=== PATIENT | female | born 1945 | race Caucasian/White ===

== ENCOUNTER 2016-09-02 14:35 | Emergency (ER) | payer OTHER, MEDICAID ==
[~2016-09-02] VITALS: Ht 177.8 cm; Wt 86.6 kg
[~2016-09-02 14:35] MED LIST: APAP/HYDROCODON1 T13 PO; ASPIR-LOW81 M1 PO; ASPIRIN325 MG PO; ATORVASTATIN CA40 M1 PO; BG MC; CARCD240 PO; CARVEDILOL3.125 M1 PO; CLEOCIN HCL300 MG PO; CLOPIDOGREL75 M1 PO; COL100 PO; COLACE100 MG PO; DEXPF IV; DUL10S RC; ECO81 PO; ERYTHROMYCIN B250 MG PO; FLA500 PO; FLAGYL500 MG PO; FLEXERIL10 MG PO; GABAPENTIN300 M3 PO; GLU500 PO; GLUCOMETER; GOOD SENSE ASP325 MG PO; HEP5I SC; HUMULIN R100 U/1 M1 SC; HYDROCODONE/ACE1 T12 PO; IPRATROPIUM BROM3 M2 HHN; LAC PO; LANCETS SQ; LIPITOR40 MG PO; LISINOPRIL10 MG PO; MECLIZINE HYDRO25 M1 PO; METFORMIN HCL1000 MG PO; METFORMIN HCL500 MG PO; METOPROLOL TART25 M1 PO; METP PO; MOR2I IV; MOTRIN800 MG PO; MYL80 CH; NEU300 PO; NIC14 TD; NICOTINE T14 MG/24 H TOP; NIT0.4 SL; NITROSTAT0.4 MG SL; NOR10T PO; NORCO1 TA2 PO; PRI20 PO; PROAIR HFA0.09 MG/Ac IH; PROVENTIL0.09 MG/A1 INH; PULMICORT0.5 MG/2 M IH; QVAR0.08 MG/Ac IH; REG5 PO; RESTASIS0.051 OU; ROB750 PO; TOR30I IV; TYL325 PO; ULT50 PO; ZES5 PO; ZESTRIL10 MG PO; ZIT250 PO; ZITHROMAX500 MG PO; ZOC10 PO; ZOC20 PO; ZOFI IV; ZOFRAN8 MG PO; [UNRECOGNIZED DRUG - CODE] IV; [UNRECOGNIZED DRUG - OTHER]
[2016-09-02 18:27] VITALS: BP 110/66
== END 2016-09-02 18:27 | disposition home or self-care (01) ==
LOC: ED 14:35
DX: S80.212A Abrasion, left knee, initial encounter (principal); M25.561 Pain in right knee; I25.10 Atherosclerotic heart disease of native coronary artery without angina pectoris; E11.9 Type 2 diabetes mellitus without complications; I10 Essential (primary) hypertension; E78.00 Pure hypercholesterolemia, unspecified; W22.8XXA Striking against or struck by other objects, initial encounter; Y93.01 Activity, walking, marching and hiking; Y99.8 Other external cause status; Y92.89 Other specified places as the place of occurrence of the external cause
CPT/HCPCS: 90715

== ENCOUNTER 2017-01-26 18:47 | Inpatient (IN) | payer OTHER, MEDICAID ==
[~2017-01-26] VITALS: Ht 177.8 cm; Wt 84.1 kg
[2017-01-26 20:18] LABS: BASOPHIL % 0.4 % (0-2); PLATELET COUNT 215 x10^3mcL (130-400); RED CELL DISTRIBUTION WIDTH 14.1 % (11.5-14.5)
[2017-01-26 20:27] LABS: CALCIUM 8.8 mg/dL (8.5-10.1); CARBON DIOXIDE 27.1 mmol/L (21-32); CHLORIDE SERUM 104 mmol/L (98-107); CREATININE SERUM 0.9 mg/dL (0.6-1.0); GLUCOSE SERUM 107 mg/dL (74-106); POTASSIUM SERUM 3.6 mmol/L (3.5-5.1); SODIUM SERUM 137 mmol/L (136-145)
[2017-01-26 20:33] LABS: ALBUMIN 3.6 g/dL (3.4-5.0); ALKALINE PHOSPHATASE 82 U/L (46-116); ALT/SGPT 18 U/L (14-59); AST/SGOT 12 U/L (15-37); BILIRUBIN TOTAL 0.4 mg/dL (0.20-1.00); CHOLESTEROL 135 mg/dL (<200); HDL CHOLESTEROL 42 mg/dL (40-60); TOTAL PROTEIN, SERUM 7.2 g/dL (6.4-8.2)
[2017-01-26 21:35] LABS: UA SPECIFIC GRAVITY 1.015 (1.005-1.035); microscopic required? YES; urine erythrocyte 1+ (NEGATIVE)
[2017-01-26] MEDS ORDERED: PROAIR HFA8.5 GM IH (21:44)
[2017-01-26 22:31] LABS: CHOLESTEROL/HDL RATIO 3.3; MAGNESIUM 2.2 mg/dL (1.8-2.4); PHOSPHOROUS 4.3 mg/dL (2.5-4.9)
[2017-01-26 22:40] LABS: FREE T4 1.02 ng/dL (0.76-1.46); FREE THYROXINE INDEX 3.1 ug/dL (1.4-4.5); T4(THYROXINE) 9.4 ug/dL (4.7-13.3)
[2017-01-26 22:52] VITALS: BP 115/67
[2017-01-26 22:55] LABS: T3 TOTAL 1.11 ng/mL
[2017-01-26 23:05] VITALS: BP 115/67
[2017-01-27 02:59] VITALS: BP 115/67
[2017-01-27] MEDS ORDERED: DERMAFUNGAL TOP (03:34)
[2017-01-27 04:48] LABS: BASOPHIL % 0.2 % (0-2); PLATELET COUNT 186 x10^3mcL (130-400); RED CELL DISTRIBUTION WIDTH 13.8 % (11.5-14.5)
[2017-01-27 05:40] VITALS: BP 123/67
[2017-01-27 09:41] VITALS: BP 142/63
[2017-01-27 13:43] VITALS: BP 124/63
[2017-01-27 18:27] VITALS: BP 135/81
[2017-01-27 21:52] VITALS: BP 119/59
[2017-01-28 05:20] VITALS: BP 117/67
[2017-01-28 07:44] LABS: BASOPHIL % 0.4 % (0-2); PLATELET COUNT 150 x10^3mcL (130-400)
[2017-01-28 08:16] LABS: CALCIUM 8.6 mg/dL (8.5-10.1); CARBON DIOXIDE 25.6 mmol/L (21-32); CHLORIDE SERUM 110 mmol/L (98-107); CREATININE SERUM 0.8 mg/dL (0.6-1.0); GLUCOSE SERUM 113 mg/dL (74-106); POTASSIUM SERUM 3.8 mmol/L (3.5-5.1); SODIUM SERUM 143 mmol/L (136-145)
[2017-01-28 10:00] VITALS: BP 163/61
[2017-01-28 14:16] VITALS: BP 127/60
[2017-01-28 18:13] VITALS: BP 126/60
[2017-01-28 21:41] VITALS: BP 123/62
[2017-01-29 04:59] VITALS: BP 144/73
[2017-01-29 09:50] VITALS: BP 162/92
[2017-01-29] MEDS ORDERED: BACTRIM DS1 TAB PO (11:25)
[2017-01-29] MEDS ORDERED: MILLIPRED DP5 M2 PO (11:54)
[2017-01-29 13:06] VITALS: BP 162/92
== END 2017-01-29 14:06 | disposition home or self-care (01) | DRG 191 ==
LOC: ED 18:47 → DU 21:46
PROVIDERS: Emergency Medicine; Family Medicine; ADMIT Family Medicine
DX: J44.1 Chronic obstructive pulmonary disease with (acute) exacerbation (principal); J45.901 Unspecified asthma with (acute) exacerbation; N39.0 Urinary tract infection, site not specified; E87.2 Acidosis; E11.9 Type 2 diabetes mellitus without complications; E78.5 Hyperlipidemia, unspecified; F17.210 Nicotine dependence, cigarettes, uncomplicated; Z95.5 Presence of coronary angioplasty implant and graft; Z79.84 Long term (current) use of oral hypoglycemic drugs
CPT/HCPCS: 82962; 83880; 84439; 94150; J2270; J2930; J3490; J7030; J7512; J7620; Q0092

== ENCOUNTER 2017-03-20 01:26 | Emergency (ER) | payer OTHER, MEDICAID ==
[~2017-03-20 01:26] MED LIST changes: +BACTRIM DS1 TAB PO; +DERMAFUNGAL TOP; +MILLIPRED DP5 M2 PO; +PROAIR HFA8.5 GM IH
[2017-03-20 04:36] VITALS: BP 143/76
== END 2017-03-20 04:36 | disposition home or self-care (01) ==
LOC: ED 01:26
DX: R06.2 Wheezing (principal); T37.8X5A Adverse effect of other specified systemic anti-infectives and antiparasitics, initial encounter; J45.909 Unspecified asthma, uncomplicated; I10 Essential (primary) hypertension; E11.9 Type 2 diabetes mellitus without complications; Z88.1 Allergy status to other antibiotic agents; Z88.0 Allergy status to penicillin; Z88.8 Allergy status to other drugs, medicaments and biological substances; Z79.84 Long term (current) use of oral hypoglycemic drugs; Z79.51 Long term (current) use of inhaled steroids; Y92.89 Other specified places as the place of occurrence of the external cause
CPT/HCPCS: J1200; J3490; J7512; J7613

== ENCOUNTER 2017-05-02 13:07 | Inpatient (IN) | payer OTHER, MEDICAID ==
[~2017-05-02] VITALS: Ht 177.8 cm; Wt 76.7 kg
[2017-05-02 14:12] LABS: BASOPHIL % 0.5 % (0-2); PLATELET COUNT 220 x10^3mcL (130-400); RED CELL DISTRIBUTION WIDTH 14.5 % (11.5-14.5)
[2017-05-02 14:18] LABS: CALCIUM 9.7 mg/dL (8.5-10.1); CARBON DIOXIDE 33.5 mmol/L (21-32); CHLORIDE SERUM 101 mmol/L (98-107); CREATININE SERUM 0.8 mg/dL (0.6-1.0); GLUCOSE SERUM 104 mg/dL (74-106); POTASSIUM SERUM 4.4 mmol/L (3.5-5.1); SODIUM SERUM 139 mmol/L (136-145)
[2017-05-02 14:23] LABS: ALBUMIN 3.8 g/dL (3.4-5.0); ALKALINE PHOSPHATASE 88 U/L (46-116); ALT/SGPT 20 U/L (14-59); AST/SGOT 14 U/L (15-37); BILIRUBIN TOTAL 0.6 mg/dL (0.20-1.00); TOTAL PROTEIN, SERUM 7.7 g/dL (6.4-8.2)
[2017-05-02] MEDS ORDERED: CARVEDILOL3.125 M1 PO (14:24)
[2017-05-02] MEDS ORDERED: ATORVASTATIN CA40 M1 PO (14:24)
[2017-05-02] MEDS ORDERED: LISINOPRIL10 MG PO (14:25)
[2017-05-02] MEDS ORDERED: METFORMIN HYDR500 M1 PO (14:25)
[2017-05-02] MEDS ORDERED: CLOPIDOGREL75 M1 PO (14:25)
[2017-05-02 15:12] LABS: UA SPECIFIC GRAVITY <=1.005 (1.005-1.035); microscopic required? YES; urine erythrocyte 1+ (NEGATIVE)
[2017-05-02 15:42] LABS: PHOSPHOROUS 4.1 mg/dL (2.5-4.9)
[2017-05-02 15:51] VITALS: BP 121/74
[2017-05-02 15:52] LABS: FREE T4 1.15 ng/dL (0.76-1.46); FREE THYROXINE INDEX 3.2 ug/dL (1.4-4.5); T4(THYROXINE) 9.8 ug/dL (4.7-13.3)
[2017-05-02 15:53] LABS: CHOLESTEROL/HDL RATIO 2.5
[2017-05-02 16:22] LABS: T3 TOTAL 1.41 ng/mL
[2017-05-02 16:45] VITALS: BP 121/74
[2017-05-02 20:25] VITALS: BP 124/85
[2017-05-02 20:33] LABS: AMPHETAMINE QUAL UR NONE DETECTED (NEG <=1000)
[2017-05-03 05:06] VITALS: BP 113/63
[2017-05-03 07:33] LABS: CALCIUM 9.1 mg/dL (8.5-10.1); CARBON DIOXIDE 23.1 mmol/L (21-32); CHLORIDE SERUM 103 mmol/L (98-107); CREATININE SERUM 0.9 mg/dL (0.6-1.0); GLUCOSE SERUM 231 mg/dL (74-106); POTASSIUM SERUM 4.1 mmol/L (3.5-5.1); SODIUM SERUM 138 mmol/L (136-145)
[2017-05-03 07:43] LABS: BASOPHIL % 0.1 % (0-2); PLATELET COUNT 160 x10^3mcL (130-400); RED CELL DISTRIBUTION WIDTH 13.9 % (11.5-14.5)
[2017-05-03 09:13] VITALS: BP 124/58
[2017-05-03 12:05] VITALS: Ht 177.8 cm; Wt 76.7 kg
[2017-05-03 12:58] VITALS: BP 102/44
[2017-05-03 18:15] VITALS: BP 118/58
[2017-05-03 20:51] VITALS: BP 139/59
[2017-05-04 04:57] VITALS: BP 110/61
[2017-05-04 05:04] VITALS: BP 131/77
[2017-05-04 07:14] LABS: PLATELET COUNT 163 x10^3mcL (130-400); RED CELL DISTRIBUTION WIDTH 13.9 % (11.5-14.5)
[2017-05-04 07:25] LABS: CALCIUM 8.9 mg/dL (8.5-10.1); CARBON DIOXIDE 25.9 mmol/L (21-32); CHLORIDE SERUM 107 mmol/L (98-107); CREATININE SERUM 0.7 mg/dL (0.6-1.0); GLUCOSE SERUM 174 mg/dL (74-106); POTASSIUM SERUM 3.9 mmol/L (3.5-5.1); SODIUM SERUM 141 mmol/L (136-145)
[2017-05-04 07:45] LABS: BASOPHIL % 0 % (0-2)
[2017-05-04 11:26] VITALS: BP 112/52
[2017-05-04 17:21] VITALS: BP 120/55
[2017-05-04 20:33] VITALS: BP 130/64
[2017-05-05 05:52] VITALS: BP 128/61
[2017-05-05 06:03] LABS: PLATELET COUNT 162 x10^3mcL (130-400); RED CELL DISTRIBUTION WIDTH 13.9 % (11.5-14.5)
[2017-05-05 06:10] LABS: CALCIUM 8.9 mg/dL (8.5-10.1); CARBON DIOXIDE 28.7 mmol/L (21-32); CHLORIDE SERUM 106 mmol/L (98-107); CREATININE SERUM 0.8 mg/dL (0.6-1.0); GLUCOSE SERUM 179 mg/dL (74-106); POTASSIUM SERUM 3.9 mmol/L (3.5-5.1); SODIUM SERUM 141 mmol/L (136-145)
[2017-05-05 06:15] LABS: BASOPHIL % 0 % (0-2)
[2017-05-05 09:16] VITALS: BP 146/72
[2017-05-05] MEDS ORDERED: SYMBICORT1 AE3 INH (10:07)
[2017-05-05] MEDS ORDERED: MEDDP PO (10:08)
[2017-05-05] MEDS ORDERED: ZIT250 PO (10:15)
[2017-05-05] MEDS ORDERED: LAC PO (10:16)
[2017-05-05 11:11] VITALS: BP 146/72
== END 2017-05-05 12:00 | disposition home or self-care (01) | DRG 190 ==
LOC: ED 13:07 → DU 15:03 → MU 15:03 → DU 15:32 → MU 05-04 08:32
PROVIDERS: Emergency Medicine; ADMIT Family Medicine
DX: J44.1 Chronic obstructive pulmonary disease with (acute) exacerbation (principal); N17.0 Acute kidney failure with tubular necrosis; J40 Bronchitis, not specified as acute or chronic; M94.0 Chondrocostal junction syndrome [Tietze]; R31.9 Hematuria, unspecified; E11.51 Type 2 diabetes mellitus with diabetic peripheral angiopathy without gangrene; I10 Essential (primary) hypertension; I25.10 Atherosclerotic heart disease of native coronary artery without angina pectoris; F17.210 Nicotine dependence, cigarettes, uncomplicated; Z95.5 Presence of coronary angioplasty implant and graft; Z79.84 Long term (current) use of oral hypoglycemic drugs; Z68.24 Body mass index [BMI] 24.0-24.9, adult
CPT/HCPCS: 82962; 83880; 84439; 94150; J0456; J2543; J2920; J2930; J7030; J7050; J7620; J7626; Q0092; Q0169

== ENCOUNTER 2017-06-22 19:02 | Inpatient (IN) | payer OTHER, MEDICAID ==
[~2017-06-22] VITALS: Ht 180.3 cm; Wt 82.3 kg
[~2017-06-22 19:02] MED LIST changes: +MEDDP PO; +METFORMIN HYDR500 M1 PO; +SYMBICORT1 AE3 INH
[2017-06-22 20:21] LABS: UA SPECIFIC GRAVITY >=1.030 (1.005-1.035); microscopic required? YES; urine erythrocyte 1+ (NEGATIVE)
[2017-06-22 20:51] LABS: BASOPHIL % 0.4 % (0-2); PLATELET COUNT 189 x10^3mcL (130-400)
[2017-06-22 20:52] LABS: RED CELL DISTRIBUTION WIDTH 14.6 % (11.5-14.5)
[2017-06-22 21:25] LABS: CARBON DIOXIDE 23.4 mmol/L (21-32); CHLORIDE SERUM 103 mmol/L (98-107); GLUCOSE SERUM 163 mg/dL (74-106); POTASSIUM SERUM 4.1 mmol/L (3.5-5.1); SODIUM SERUM 137 mmol/L (136-145)
[2017-06-22 21:29] LABS: ALKALINE PHOSPHATASE 69 U/L (46-116); ALT/SGPT 23 U/L (14-59); AMYLASE 34 U/L (25-115); AST/SGOT 11 U/L (15-37); BILIRUBIN TOTAL 0.3 mg/dL (0.20-1.00); HDL CHOLESTEROL 35 mg/dL (40-60); LIPASE 165 IU/L (73-393)
[2017-06-22 21:37] LABS: CHOLESTEROL 110 mg/dL (<200); TOTAL PROTEIN, SERUM 5.8 g/dL (6.4-8.2)
[2017-06-22 22:08] LABS: T4(THYROXINE) 6.9 ug/dL (4.7-13.3)
[2017-06-22 22:25] LABS: AMPHETAMINE QUAL UR NONE DETECTED (NEG <=1000)
[2017-06-23] VITALS (7 sets, daily range): BP systolic 101–136; BP diastolic 53–61; Ht 180.3 cm; Wt 82.3 kg
[2017-06-23 01:26] LABS: MAGNESIUM 2.2 mg/dL (1.8-2.4); PHOSPHOROUS 3.5 mg/dL (2.5-4.9)
[2017-06-24 06:31] VITALS: BP 97/42
[2017-06-24 07:11] LABS: CALCIUM 8.9 mg/dL (8.5-10.1); CARBON DIOXIDE 22.1 mmol/L (21-32); CHLORIDE SERUM 103 mmol/L (98-107); CREATININE SERUM 0.8 mg/dL (0.6-1.0); GLUCOSE SERUM 220 mg/dL (74-106); PHOSPHOROUS 4.1 mg/dL (2.5-4.9); POTASSIUM SERUM 4.3 mmol/L (3.5-5.1); SODIUM SERUM 137 mmol/L (136-145)
[2017-06-24 07:13] LABS: PLATELET COUNT 171 x10^3mcL (130-400); RED CELL DISTRIBUTION WIDTH 14.5 % (11.5-14.5)
[2017-06-24 08:00] VITALS: BP 119/59
[2017-06-24 10:26] VITALS: BP 133/60
[2017-06-24 11:14] LABS: BAND NEUTROPHIL 1 % (0-10); BASOPHIL 0 % (0-2); MONOCYTE 1 % (0-7); SEGMENTED NEUTROPHILS 98 % (37-75)
[2017-06-24 11:15] LABS: PLATELET MORPHOLOGY PLATELETS DECREASED; rbc morphology (normal/abnorm) NORMAL (NORMAL)
[2017-06-24 14:30] VITALS: BP 107/57
[2017-06-24 18:30] VITALS: BP 106/53
[2017-06-24 21:27] VITALS: BP 120/56
[2017-06-25 05:13] VITALS: BP 100/47
[2017-06-25 06:37] LABS: CALCIUM 8.8 mg/dL (8.5-10.1); CARBON DIOXIDE 25.5 mmol/L (21-32); CHLORIDE SERUM 105 mmol/L (98-107); CREATININE SERUM 0.8 mg/dL (0.6-1.0); GLUCOSE SERUM 193 mg/dL (74-106); POTASSIUM SERUM 4.3 mmol/L (3.5-5.1); SODIUM SERUM 138 mmol/L (136-145)
[2017-06-25 06:57] LABS: BASOPHIL % 0 % (0-2); PLATELET COUNT 126 x10^3mcL (130-400); RED CELL DISTRIBUTION WIDTH 14.8 % (11.5-14.5)
[2017-06-25 10:02] VITALS: BP 115/62
[2017-06-25 11:45] VITALS: BP 121/64
[2017-06-25 17:03] VITALS: BP 115/63
[2017-06-25 21:07] VITALS: BP 114/58
[2017-06-26 05:36] VITALS: BP 129/75
[2017-06-26 07:06] LABS: BASOPHIL % 0.2 % (0-2)
[2017-06-26 07:08] LABS: PLATELET COUNT 113 x10^3mcL (130-400); RED CELL DISTRIBUTION WIDTH 14.6 % (11.5-14.5)
[2017-06-26 07:10] LABS: CALCIUM 8.8 mg/dL (8.5-10.1); CARBON DIOXIDE 24.8 mmol/L (21-32); CHLORIDE SERUM 104 mmol/L (98-107); CREATININE SERUM 0.8 mg/dL (0.6-1.0); GLUCOSE SERUM 201 mg/dL (74-106); POTASSIUM SERUM 4.4 mmol/L (3.5-5.1); SODIUM SERUM 139 mmol/L (136-145)
[2017-06-26] MEDS ORDERED: AZACTAM1 GM IJ (09:56)
[2017-06-26 10:32] VITALS: BP 136/63
[2017-06-26 14:32] VITALS: BP 123/53
[2017-06-26 17:04] VITALS: BP 118/76
[2017-06-26 19:01] VITALS: BP 118/76
[2017-06-26] MEDS ORDERED: PEP20 PO (19:08)
[2017-06-26] MEDS ORDERED: SOL40I IV (19:08)
[2017-06-26] MEDS ORDERED: MOR2I IV (19:08)
[2017-06-26] MEDS ORDERED: IPRATROPIUM BROM3 M2 HHN ×2 (19:09→19:10)
[2017-06-26] MEDS ORDERED: NIC7 TD (19:09)
[2017-06-26] MEDS ORDERED: ROBITUSSIN W/CODEINE PO (19:09)
[2017-06-26] MEDS ORDERED: GLU500 PO (19:09)
[2017-06-26] MEDS ORDERED: HUMULIN R100 U/1 M1 SC (19:10)
[2017-06-26] MEDS ORDERED: DEXPF IV (19:10)
[2017-06-26] MEDS ORDERED: BG FS (19:10)
[2017-06-26] MEDS ORDERED: ZOFI IV (19:10)
[2017-06-26] MEDS ORDERED: COL100 PO (19:11)
[2017-06-26] MEDS ORDERED: LAC PO (19:11)
[2017-06-26] MEDS ORDERED: TYL325 PO (19:11)
[2017-06-26] MEDS ORDERED: APAP/HYDROCODON1 T13 PO (19:11)
[2017-06-26] MEDS ORDERED: NIT0.4 SL (19:12)
[2017-06-26 20:20] VITALS: BP 118/55
== END 2017-06-26 21:19 | disposition short-term general hospital (02) | DRG 280 ==
LOC: ED 19:02 → DU 23:18 → MU 06-24 08:33 → DU 06-24 11:09
PROVIDERS: Emergency Medicine; Family Medicine; Student in an Organized Health Care Education/Training Program
DX: I21.19 ST elevation (STEMI) myocardial infarction involving other coronary artery of inferior wall (principal); N17.0 Acute kidney failure with tubular necrosis; J44.1 Chronic obstructive pulmonary disease with (acute) exacerbation; E44.0 Moderate protein-calorie malnutrition; N39.0 Urinary tract infection, site not specified; B96.20 Unspecified Escherichia coli [E. coli] as the cause of diseases classified elsewhere; R31.9 Hematuria, unspecified; I25.10 Atherosclerotic heart disease of native coronary artery without angina pectoris; I10 Essential (primary) hypertension; K21.9 Gastro-esophageal reflux disease without esophagitis; E11.51 Type 2 diabetes mellitus with diabetic peripheral angiopathy without gangrene; E11.65 Type 2 diabetes mellitus with hyperglycemia; E78.00 Pure hypercholesterolemia, unspecified; F17.210 Nicotine dependence, cigarettes, uncomplicated; Z68.25 Body mass index [BMI] 25.0-25.9, adult; Z95.5 Presence of coronary angioplasty implant and graft; Z79.84 Long term (current) use of oral hypoglycemic drugs; Z16.24 Resistance to multiple antibiotics
CPT/HCPCS: 36600; 83880; 87804; 94150; A9500; J0456; J2270; J2785; J2920; J2930; J3490; J7030; J7040; J7050; J7613; J7620; J7644; Q0092

== ENCOUNTER 2017-07-07 12:26 | Emergency (ER) | payer OTHER, MEDICAID ==
[~2017-07-07] VITALS: Ht 177.8 cm; Wt 81.2 kg
[~2017-07-07 12:26] MED LIST changes: +AZACTAM1 GM IJ; +BG FS; +NIC7 TD; +PEP20 PO; +ROBITUSSIN W/CODEINE PO; +SOL40I IV
[2017-07-07 12:38] VITALS: Ht 177.8 cm; Wt 81.2 kg
[2017-07-07 14:21] LABS: BASOPHIL % 0.2 % (0-2); PLATELET COUNT 168 x10^3mcL (130-400)
[2017-07-07 14:22] LABS: RED CELL DISTRIBUTION WIDTH 15.4 % (11.5-14.5)
[2017-07-07 14:25] LABS: CALCIUM 8.3 mg/dL (8.5-10.1); CARBON DIOXIDE 27.4 mmol/L (21-32); CHLORIDE SERUM 100 mmol/L (98-107); CREATININE SERUM 0.8 mg/dL (0.6-1.0); GLUCOSE SERUM 173 mg/dL (74-106); POTASSIUM SERUM 4.2 mmol/L (3.5-5.1); SODIUM SERUM 136 mmol/L (136-145)
[2017-07-07 14:30] LABS: ALKALINE PHOSPHATASE 60 U/L (46-116); ALT/SGPT 32 U/L (14-59); AST/SGOT 11 U/L (15-37); BILIRUBIN TOTAL 0.4 mg/dL (0.20-1.00); TOTAL PROTEIN, SERUM 6.2 g/dL (6.4-8.2)
[2017-07-07 14:31] LABS: ALBUMIN 3.3 g/dL (3.4-5.0)
[2017-07-07 17:08] VITALS: BP 105/55
== END 2017-07-07 17:08 | disposition home or self-care (01) ==
LOC: ED 12:26
PROVIDERS: Emergency Medicine
DX: R07.89 Other chest pain (principal); I25.10 Atherosclerotic heart disease of native coronary artery without angina pectoris; K57.92 Diverticulitis of intestine, part unspecified, without perforation or abscess without bleeding; E78.00 Pure hypercholesterolemia, unspecified; I10 Essential (primary) hypertension; E11.9 Type 2 diabetes mellitus without complications; J44.9 Chronic obstructive pulmonary disease, unspecified; J45.909 Unspecified asthma, uncomplicated; Z88.0 Allergy status to penicillin; Z88.1 Allergy status to other antibiotic agents; Z88.8 Allergy status to other drugs, medicaments and biological substances; Z88.6 Allergy status to analgesic agent; Z95.5 Presence of coronary angioplasty implant and graft
CPT/HCPCS: 36415; 83880; Q0092

== ENCOUNTER 2017-08-01 19:29 | Emergency (ER) | payer OTHER, MEDICAID ==
[~2017-08-01] VITALS: Ht 177.8 cm; Wt 81.6 kg
[2017-08-01 20:08] VITALS: Ht 177.8 cm; Wt 81.6 kg
[2017-08-02 01:33] VITALS: BP 117/48
== END 2017-08-02 01:33 | disposition home or self-care (01) ==
LOC: ED 19:29
DX: J44.1 Chronic obstructive pulmonary disease with (acute) exacerbation (principal); J06.9 Acute upper respiratory infection, unspecified; I10 Essential (primary) hypertension; E11.9 Type 2 diabetes mellitus without complications; E78.00 Pure hypercholesterolemia, unspecified; Z95.5 Presence of coronary angioplasty implant and graft; Z88.0 Allergy status to penicillin; Z88.5 Allergy status to narcotic agent; Z88.6 Allergy status to analgesic agent; Z91.041 Radiographic dye allergy status
CPT/HCPCS: J7644

== ENCOUNTER 2018-01-23 18:32 | Emergency (ER) | payer OTHER, MEDICAID ==
[~2018-01-23] VITALS: Ht 175.3 cm; Wt 85.3 kg
[2018-01-23 18:39] VITALS: Ht 175.3 cm; Wt 85.3 kg
[2018-01-23 19:36] VITALS: BP 119/66
== END 2018-01-23 19:36 | disposition home or self-care (01) ==
LOC: ED 18:32
DX: T63.301A Toxic effect of unspecified spider venom, accidental (unintentional), initial encounter (principal); F41.9 Anxiety disorder, unspecified; I25.10 Atherosclerotic heart disease of native coronary artery without angina pectoris; I10 Essential (primary) hypertension; E11.9 Type 2 diabetes mellitus without complications; J44.1 Chronic obstructive pulmonary disease with (acute) exacerbation; E78.00 Pure hypercholesterolemia, unspecified; F17.210 Nicotine dependence, cigarettes, uncomplicated; Y92.89 Other specified places as the place of occurrence of the external cause; Z88.0 Allergy status to penicillin; Z88.1 Allergy status to other antibiotic agents; Z88.6 Allergy status to analgesic agent; Z88.8 Allergy status to other drugs, medicaments and biological substances; Z91.048 Other nonmedicinal substance allergy status
CPT/HCPCS: 99406

== ENCOUNTER 2018-03-28 17:29 | Inpatient (IN) | payer OTHER, MEDICAID ==
[~2018-03-28] VITALS: Ht 175.3 cm; Wt 84.9 kg
[2018-03-28 18:56] LABS: UA SPECIFIC GRAVITY <=1.005 (1.005-1.035); microscopic required? YES; urine erythrocyte 1+ (NEGATIVE)
[2018-03-28 19:04] LABS: BASOPHIL % 0.6 % (0-2); PLATELET COUNT 180 x10^3mcL (130-400); RED CELL DISTRIBUTION WIDTH 13.8 % (11.5-14.5)
[2018-03-28 19:13] LABS: ALKALINE PHOSPHATASE 82 U/L (46-116); ALT/SGPT 16 U/L (14-59); AMYLASE 38 U/L (25-115); AST/SGOT 14 U/L (15-37); CALCIUM 8.5 mg/dL (8.5-10.1); CARBON DIOXIDE 33.2 mmol/L (21-32); CHLORIDE SERUM 103 mmol/L (98-107); CREATININE SERUM 0.8 mg/dL (0.6-1.0); GLUCOSE SERUM 130 mg/dL (74-106); LIPASE 255 IU/L (73-393); SODIUM SERUM 142 mmol/L (136-145); TOTAL PROTEIN, SERUM 6.3 g/dL (6.4-8.2)
[2018-03-28 19:18] LABS: ALBUMIN 3.2 g/dL (3.4-5.0); POTASSIUM SERUM 2.4 mmol/L (3.5-5.1)
[2018-03-28] MEDS ORDERED: ASPIR 8181 MG PO (19:35)
[2018-03-28] MEDS ORDERED: AMLODIPINE BES2.5 M1 PO (19:35)
[2018-03-28 20:11] LABS: T3 TOTAL 1.34 ng/mL
[2018-03-28 20:27] LABS: FREE T4 1.22 ng/dL (0.76-1.46); FREE THYROXINE INDEX 3.3 ug/dL (1.4-4.5); T4(THYROXINE) 9.3 ug/dL (4.7-13.3)
[2018-03-28 20:38] LABS: MAGNESIUM 2.4 mg/dL (1.8-2.4); PHOSPHOROUS 2.8 mg/dL (2.5-4.9)
[2018-03-28 20:40] LABS: CHOLESTEROL/HDL RATIO 2.6
[2018-03-28 22:09] VITALS: BP 127/67
[2018-03-29 05:18] VITALS: BP 117/75
[2018-03-29 06:35] LABS: CARBON DIOXIDE 32.7 mmol/L (21-32); CHLORIDE SERUM 107 mmol/L (98-107); CREATININE SERUM 0.8 mg/dL (0.6-1.0); GLUCOSE SERUM 119 mg/dL (74-106); SODIUM SERUM 145 mmol/L (136-145)
[2018-03-29 06:38] LABS: BASOPHIL % 0.8 % (0-2); PLATELET COUNT 161 x10^3mcL (130-400); RED CELL DISTRIBUTION WIDTH 13.2 % (11.5-14.5)
[2018-03-29 06:49] LABS: POTASSIUM SERUM 2.8 mmol/L (3.5-5.1)
[2018-03-29 08:55] VITALS: BP 94/54
[2018-03-29 13:37] VITALS: BP 112/61
[2018-03-29 17:42] VITALS: BP 103/52
[2018-03-29 21:34] VITALS: BP 112/58
[2018-03-30 05:11] VITALS: BP 125/58
[2018-03-30 07:09] LABS: CALCIUM 8.3 mg/dL (8.5-10.1); CARBON DIOXIDE 28.7 mmol/L (21-32); CHLORIDE SERUM 106 mmol/L (98-107); CREATININE SERUM 0.8 mg/dL (0.6-1.0); GLUCOSE SERUM 151 mg/dL (74-106); PHOSPHOROUS 3.3 mg/dL (2.5-4.9); SODIUM SERUM 142 mmol/L (136-145)
[2018-03-30 07:15] LABS: POTASSIUM SERUM 2.9 mmol/L (3.5-5.1)
[2018-03-30 08:50] LABS: BASOPHIL % 0.9 % (0-2); PLATELET COUNT 156 x10^3mcL (130-400); RED CELL DISTRIBUTION WIDTH 13.9 % (11.5-14.5)
[2018-03-30 09:03] VITALS: BP 122/49
[2018-03-30] MEDS ORDERED: BAC PO (11:32)
[2018-03-30] MEDS ORDERED: LAC PO (11:33)
[2018-03-30 13:01] VITALS: BP 141/70
[2018-03-30] MEDS ORDERED: DOXYCYCLINE HY100 M2 PO (14:45)
[2018-03-30] MEDS ORDERED: PYRIDIUM100 MG PO (14:45)
[2018-03-30 15:45] VITALS: BP 141/70
[2018-03-30 16:50] VITALS: BP 127/64
[2018-03-31 15:17] VITALS: Ht 175.3 cm; Wt 84.9 kg
== END 2018-03-30 17:00 | disposition home or self-care (01) | DRG 690 ==
LOC: ED 17:29 → EDBEDREQSVC 19:32 → EDBEDREQ 19:32 → DU 19:32 → MU 19:32 → DU 21:51
PROVIDERS: Emergency Medicine; Internal Medicine
DX: N39.0 Urinary tract infection, site not specified (principal); E44.0 Moderate protein-calorie malnutrition; D68.69 Other thrombophilia; E11.51 Type 2 diabetes mellitus with diabetic peripheral angiopathy without gangrene; E11.65 Type 2 diabetes mellitus with hyperglycemia; E87.6 Hypokalemia; R31.9 Hematuria, unspecified; I10 Essential (primary) hypertension; I25.10 Atherosclerotic heart disease of native coronary artery without angina pectoris; J44.9 Chronic obstructive pulmonary disease, unspecified; M50.20 Other cervical disc displacement, unspecified cervical region; G89.29 Other chronic pain; F17.210 Nicotine dependence, cigarettes, uncomplicated; Z68.27 Body mass index [BMI] 27.0-27.9, adult; Z79.84 Long term (current) use of oral hypoglycemic drugs; Z95.5 Presence of coronary angioplasty implant and graft; Z79.82 Long term (current) use of aspirin
CPT/HCPCS: 82962; 83880; 84439; J1580; J1885; J2270; J2405; J3480; J7030; Q0092

== ENCOUNTER 2018-05-10 14:40 | Inpatient (IN) | payer OTHER, MEDICAID ==
[~2018-05-10] VITALS: Ht 172.7 cm; Wt 86.6 kg
[~2018-05-10 14:40] MED LIST changes: +AMLODIPINE BES2.5 M1 PO; +ASPIR 8181 MG PO; +BAC PO; +DOXYCYCLINE HY100 M2 PO; +PYRIDIUM100 MG PO
[2018-05-10 16:30] LABS: microscopic required? YES; urine erythrocyte 1+ (NEGATIVE)
[2018-05-10 16:32] LABS: BASOPHIL % 0.6 % (0-2); PLATELET COUNT 168 x10^3mcL (130-400); RED CELL DISTRIBUTION WIDTH 13.6 % (11.5-14.5)
[2018-05-10 16:49] LABS: T3 TOTAL 1.18 ng/mL
[2018-05-10 17:01] LABS: ALBUMIN 3.7 g/dL (3.4-5.0); ALKALINE PHOSPHATASE 84 U/L (46-116); ALT/SGPT 18 U/L (14-59); AST/SGOT 10 U/L (15-37); BILIRUBIN TOTAL 0.35 mg/dL (0.20-1.00); CALCIUM 8.6 mg/dL (8.5-10.1); CARBON DIOXIDE 26.1 mmol/L (21-32); CHLORIDE SERUM 105 mmol/L (98-107); GLUCOSE SERUM 102 mg/dL (74-106); HDL CHOLESTEROL 42 mg/dL (40-60); LIPASE 84 IU/L (73-393); POTASSIUM SERUM 3.3 mmol/L (3.5-5.1); SODIUM SERUM 140 mmol/L (136-145); TOTAL PROTEIN, SERUM 7.3 g/dL (6.4-8.2); TRIGLYCERIDES 108 mg/dL (<150)
[2018-05-10 17:12] LABS: CHOLESTEROL 107 mg/dL (<200); CHOLESTEROL/HDL RATIO 2.5
[2018-05-10 17:27] LABS: FREE T4 1.08 ng/dL (0.76-1.46); FREE THYROXINE INDEX 3.2 ug/dL (1.4-4.5); T4(THYROXINE) 9.4 ug/dL (4.7-13.3)
[2018-05-10] MEDS ORDERED: POTASSIUM CHLO10 MEQ PO (20:13)
[2018-05-10] MEDS ORDERED: LISINOPRIL10 MG PO (20:14)
[2018-05-10] MEDS ORDERED: PROAIR HFA8.5 GM IH (20:15)
[2018-05-10 20:51] VITALS: BP 109/53
[2018-05-11 01:24] VITALS: BP 109/53
[2018-05-11 05:34] VITALS: BP 100/56
[2018-05-11 06:10] LABS: BASOPHIL % 0.5 % (0-2); PLATELET COUNT 137 x10^3mcL (130-400); RED CELL DISTRIBUTION WIDTH 13.5 % (11.5-14.5)
[2018-05-11 07:02] LABS: ALKALINE PHOSPHATASE 67 U/L (46-116); ALT/SGPT 15 U/L (14-59); AST/SGOT 11 U/L (15-37); BILIRUBIN TOTAL 0.3 mg/dL (0.20-1.00); CALCIUM 8.5 mg/dL (8.5-10.1); CARBON DIOXIDE 26.5 mmol/L (21-32); CHLORIDE SERUM 106 mmol/L (98-107); CREATININE SERUM 0.9 mg/dL (0.6-1.0); GLUCOSE SERUM 103 mg/dL (74-106); POTASSIUM SERUM 3.3 mmol/L (3.5-5.1); SODIUM SERUM 139 mmol/L (136-145); TOTAL PROTEIN, SERUM 6.2 g/dL (6.4-8.2)
[2018-05-11 07:08] LABS: ALBUMIN 3.2 g/dL (3.4-5.0)
[2018-05-11 08:20] VITALS: BP 107/64
[2018-05-11 13:00] VITALS: BP 109/76
[2018-05-11 17:00] VITALS: BP 108/40
[2018-05-11 20:40] VITALS: BP 123/68
[2018-05-12 04:46] VITALS: BP 111/55
[2018-05-12 08:50] VITALS: BP 130/53
[2018-05-12 11:49] VITALS: BP 105/55
[2018-05-12 16:16] VITALS: BP 110/54
[2018-05-12 20:42] VITALS: BP 106/52
[2018-05-13 04:36] VITALS: BP 112/47
[2018-05-13 06:57] LABS: CARBON DIOXIDE 20.6 mmol/L (21-32); CHLORIDE SERUM 103 mmol/L (98-107); GLUCOSE SERUM 195 mg/dL (74-106); POTASSIUM SERUM 4.1 mmol/L (3.5-5.1); SODIUM SERUM 135 mmol/L (136-145)
[2018-05-13 07:51] LABS: BASOPHIL % 0.1 % (0-2); PLATELET COUNT 161 x10^3mcL (130-400); RED CELL DISTRIBUTION WIDTH 12.3 % (11.5-14.5)
[2018-05-13] MEDS ORDERED: PREDNISONE20 MG PO (08:55)
[2018-05-13] MEDS ORDERED: BACTRIM DS1 TAB PO (08:55)
[2018-05-13] MEDS ORDERED: SINGULAIR10 MG PO (08:55)
[2018-05-13 09:00] VITALS: BP 128/53
[2018-05-13 12:35] VITALS: BP 121/58
[2018-05-13 14:24] VITALS: BP 121/58
== END 2018-05-13 15:38 | disposition home or self-care (01) | DRG 202 ==
LOC: ED 14:40 → DU 19:13
PROVIDERS: Internal Medicine; Internal Medicine Pulmonary Disease; Specialist
DX: J45.901 Unspecified asthma with (acute) exacerbation (principal); N39.0 Urinary tract infection, site not specified; J44.1 Chronic obstructive pulmonary disease with (acute) exacerbation; J20.9 Acute bronchitis, unspecified; E78.00 Pure hypercholesterolemia, unspecified; I25.10 Atherosclerotic heart disease of native coronary artery without angina pectoris; Z87.440 Personal history of urinary (tract) infections; F17.210 Nicotine dependence, cigarettes, uncomplicated
CPT/HCPCS: 36600; 82962; 83880; 84439; 87804; J0744; J1200; J1815; J2920; J2930; J7030; J7613; J7620; J7626; J7644; Q0092

== ENCOUNTER 2018-05-22 16:34 | Inpatient (IN) | payer OTHER, MEDICAID ==
[~2018-05-22] VITALS: Ht 172.7 cm; Wt 84.4 kg
[~2018-05-22 16:34] MED LIST changes: +POTASSIUM CHLO10 MEQ PO; +PREDNISONE20 MG PO; +SINGULAIR10 MG PO
[2018-05-22 16:37] VITALS: Ht 172.7 cm; Wt 84.4 kg
[2018-05-22 17:15] LABS: BASOPHIL % 0.3 % (0-2); PLATELET COUNT 231 x10^3mcL (130-400); RED CELL DISTRIBUTION WIDTH 13.7 % (11.5-14.5)
[2018-05-22 17:24] LABS: CALCIUM 8.6 mg/dL (8.5-10.1); CARBON DIOXIDE 22.8 mmol/L (21-32); CHLORIDE SERUM 94 mmol/L (98-107); CREATININE SERUM 1.3 mg/dL (0.6-1.0); GLUCOSE SERUM 229 mg/dL (74-106); POTASSIUM SERUM 4.4 mmol/L (3.5-5.1); SODIUM SERUM 129 mmol/L (136-145)
[2018-05-22 17:28] LABS: ALBUMIN 3.6 g/dL (3.4-5.0); ALKALINE PHOSPHATASE 68 U/L (46-116); ALT/SGPT 32 U/L (14-59); AST/SGOT 17 U/L (15-37); BILIRUBIN TOTAL 0.5 mg/dL (0.20-1.00); TOTAL PROTEIN, SERUM 6.7 g/dL (6.4-8.2)
[2018-05-22 18:55] VITALS: BP 111/59
[2018-05-22 20:28] VITALS: BP 111/59
[2018-05-22 21:36] VITALS: BP 98/53
[2018-05-23 05:16] VITALS: BP 98/46
[2018-05-23 06:14] LABS: BASOPHIL % 0.4 % (0-2); PLATELET COUNT 170 x10^3mcL (130-400); RED CELL DISTRIBUTION WIDTH 13.5 % (11.5-14.5)
[2018-05-23 06:38] LABS: ALKALINE PHOSPHATASE 61 U/L (46-116); ALT/SGPT 26 U/L (14-59); AST/SGOT 11 U/L (15-37); BILIRUBIN TOTAL 0.44 mg/dL (0.20-1.00); CALCIUM 7.8 mg/dL (8.5-10.1); CARBON DIOXIDE 27.4 mmol/L (21-32); CHLORIDE SERUM 100 mmol/L (98-107); CREATININE SERUM 0.9 mg/dL (0.6-1.0); GLUCOSE SERUM 120 mg/dL (74-106); HDL CHOLESTEROL 41 mg/dL (40-60); POTASSIUM SERUM 4.3 mmol/L (3.5-5.1); SODIUM SERUM 133 mmol/L (136-145); TRIGLYCERIDES 118 mg/dL (<150)
[2018-05-23 06:43] LABS: ALBUMIN 3.1 g/dL (3.4-5.0); CHOLESTEROL 99 mg/dL (<200); CHOLESTEROL/HDL RATIO 2.4; TOTAL PROTEIN, SERUM 5.7 g/dL (6.4-8.2)
[2018-05-23 10:23] VITALS: BP 116/51
[2018-05-23] MEDS ORDERED: ISOSORBIDE MONO30 MG PO (12:54)
[2018-05-23 13:18] VITALS: BP 106/48
[2018-05-23 13:53] VITALS: BP 106/48
== END 2018-05-23 14:30 | disposition home or self-care (01) | DRG 313 ==
LOC: ED 16:34 → DU 18:09
PROVIDERS: Emergency Medicine; Internal Medicine
DX: R07.9 Chest pain, unspecified (principal); E87.1 Hypo-osmolality and hyponatremia; E11.9 Type 2 diabetes mellitus without complications; E78.5 Hyperlipidemia, unspecified; J44.9 Chronic obstructive pulmonary disease, unspecified; I10 Essential (primary) hypertension; I25.10 Atherosclerotic heart disease of native coronary artery without angina pectoris; Z87.891 Personal history of nicotine dependence; Z95.5 Presence of coronary angioplasty implant and graft; Z79.84 Long term (current) use of oral hypoglycemic drugs
CPT/HCPCS: 82962; 83880; J2270; J2405; J7030; J7512; J7620; J7626; Q0092

== ENCOUNTER 2018-07-19 12:02 | Emergency (ER) | payer OTHER, MEDICAID | END 2018-07-19 14:01 | disposition home or self-care (01) | LOC: ED 12:02 ==

== ENCOUNTER 2018-08-13 13:14 | Emergency (ER) | payer OTHER, MEDICAID ==
[~2018-08-13] VITALS: Ht 175.3 cm; Wt 80.0 kg
[~2018-08-13 13:14] MED LIST changes: +ISOSORBIDE MONO30 MG PO
[2018-08-13 13:26] VITALS: Ht 175.3 cm; Wt 80.0 kg
[2018-08-13 16:36] LABS: BASOPHIL % 0.7 % (0-2); PLATELET COUNT 203 x10^3mcL (130-400)
[2018-08-13 17:02] LABS: CALCIUM 8.9 mg/dL (8.5-10.1); CARBON DIOXIDE 30.4 mmol/L (21-32); CHLORIDE SERUM 105 mmol/L (98-107); CREATININE SERUM 0.8 mg/dL (0.6-1.0); GLUCOSE SERUM 109 mg/dL (74-106); POTASSIUM SERUM 4.4 mmol/L (3.5-5.1); SODIUM SERUM 142 mmol/L (136-145)
[2018-08-13 17:07] LABS: ALBUMIN 3.7 g/dL (3.4-5.0); ALKALINE PHOSPHATASE 86 U/L (46-116); AST/SGOT 11 U/L (15-37); C REACTIVE PROTEIN 0.6 mg/dL (<=0.9); TOTAL PROTEIN, SERUM 7.3 g/dL (6.4-8.2)
[2018-08-13 17:20] LABS: FREE T4 1.11 ng/dL (0.76-1.46); T4(THYROXINE) 8.8 ug/dL (4.7-13.3)
[2018-08-13 17:31] LABS: ALT/SGPT 19 U/L (14-59)
[2018-08-13 17:32] LABS: ERYTHROCYTE SED RATE 15 mm/hr (0-30)
[2018-08-13 17:45] LABS: T3 TOTAL 1.04 ng/mL
[2018-08-13 17:48] LABS: CK-MB 0.7 ng/mL (0-3.6)
[2018-08-13 19:01] LABS: UA SPECIFIC GRAVITY 1.015 (1.005-1.035); microscopic required? YES; urine erythrocyte 1+ (NEGATIVE)
[2018-08-13 20:34] VITALS: BP 117/67
== END 2018-08-13 20:34 | disposition home or self-care (01) ==
LOC: ED 13:14
PROVIDERS: Specialist
DX: J45.909 Unspecified asthma, uncomplicated (principal); M79.10 Myalgia, unspecified site; J44.9 Chronic obstructive pulmonary disease, unspecified; I10 Essential (primary) hypertension; E11.9 Type 2 diabetes mellitus without complications; G89.29 Other chronic pain; E78.00 Pure hypercholesterolemia, unspecified; Z88.0 Allergy status to penicillin; Z88.6 Allergy status to analgesic agent; Z88.1 Allergy status to other antibiotic agents; Z88.8 Allergy status to other drugs, medicaments and biological substances
CPT/HCPCS: 36600; 84439; 87804; J0456; J2405; J2930; J3010; J7050; J7613; J7644; Q0092

== ENCOUNTER 2018-08-24 14:38 | Observation (INO) | payer OTHER, MEDICAID ==
[~2018-08-24] VITALS: Ht 172.7 cm; Wt 78.9 kg
--- NOTE | 2018-08-24 14:56 | NUR ---
EKG IN PROGESS.
--- NOTE | 2018-08-24 14:56 | NUR ---
PT RETURNED TO LOBBY PENDING ROOM AVAILABILITY. VSS. RESPS E/U. NO S/S OF DISTRESS NOTED.
--- NOTE | 2018-08-24 15:14 | NUR ---
PT C/O SHTABBING NONRADIATING CHEST PAIN X2 DAYS PER PT SHE HAS HX COPD AND ASTHMA AND RECENTLY DX WITH BRONCHITIS X1 WEEK AGO. PT AAOX4 RESPS EVEN BUT LABORED WITH EXERTION SPO2 97% VIA RA SKIN PINK DRY AND WARM PT PLACED ON FULL PRINTMAKER VSS AWAITING MSE
--- NOTE | 2018-08-24 15:40 | NUR ---
XRAY AT BEDSIDE
--- NOTE | 2018-08-24 15:47 | NUR ---
HHN TX GIVEN. ALBUTEROL 7.5 MG AND ATROVENT 0.5MG
--- NOTE | 2018-08-24 15:50 | NUR ---
LAB AT BEDSIDE
--- NOTE | 2018-08-24 15:52 | NUR ---
RT AT BEDSIDE FOR BREATHING TREATMENT
[2018-08-24 15:53] LABS: BASOPHIL % 0.7 % (0-2); PLATELET COUNT 225 x10^3mcL (130-400); RED CELL DISTRIBUTION WIDTH 13.3 % (11.5-14.5)
[2018-08-24 15:57] LABS: CARBON DIOXIDE 28.8 mmol/L (21-32); CHLORIDE SERUM 99 mmol/L (98-107); CREATININE SERUM 0.8 mg/dL (0.6-1.0); GLUCOSE SERUM 113 mg/dL (74-106); POTASSIUM SERUM 4.2 mmol/L (3.5-5.1); SODIUM SERUM 137 mmol/L (136-145)
[2018-08-24 16:06] LABS: ALBUMIN 3.8 g/dL (3.4-5.0); ALKALINE PHOSPHATASE 82 U/L (46-116); ALT/SGPT 16 U/L (14-59); AST/SGOT 15 U/L (15-37); BILIRUBIN TOTAL 0.58 mg/dL (0.20-1.00); HDL CHOLESTEROL 48 mg/dL (40-60); LIPASE 84 IU/L (73-393); TOTAL PROTEIN, SERUM 7.7 g/dL (6.4-8.2); TRIGLYCERIDES 156 mg/dL (<150)
[2018-08-24 16:07] LABS: CHOLESTEROL 116 mg/dL (<200); CHOLESTEROL/HDL RATIO 2.4
[2018-08-24 16:14] LABS: UA SPECIFIC GRAVITY 1.015 (1.005-1.035); microscopic required? YES; urine erythrocyte 1+ (NEGATIVE)
[2018-08-24 16:25] LABS: T3 TOTAL 1.17 ng/mL
--- NOTE | 2018-08-24 16:33 | NUR ---
PT IN POSITION OF COMFORT BREATHING TX IN PROGRESS PT MEDICATED PER MD ORDERS
[2018-08-24 16:40] LABS: FREE T4 1.1 ng/dL (0.76-1.46); FREE THYROXINE INDEX 3.2 ug/dL (1.4-4.5); T4(THYROXINE) 9.8 ug/dL (4.7-13.3)
--- NOTE | 2018-08-24 16:42 | NUR ---
PLACED PT ON 1L NC. SPO2:94%
--- NOTE | 2018-08-24 17:40 | NUR ---
PT ASLEEP IN POSITION OF COMFORT BUT AROUSABLE RESPS E/U CALL LIGHT WITHIN REACH WILL CONTINUE TO MONITOR
--- NOTE | 2018-08-24 18:02 | NUR ---
HHN TX GIVEN. ALBUTEROL 5MG AND ATROVENT 0.5 MG
--- NOTE | 2018-08-24 19:23 | NUR ---
RECEIVED PT FROM ED VIA [employer], CAME IN DUE TO CHEST PAIN WHEN COUGHING, HAS COUGH FOR THE PAST 3 WEEKS. AAOX4. DENIES HEADACHE/DIZZINESS. NO SOB NOTED, WHEEZES NOTED ON AUSCULTATION, O2 TRN=961%, RA. STATED THAT SHE HAS 5/10 ACHING CHEST PAIN, NON-RADIATING. NSR ON THE MONITOR. DENIES ABDOMINAL PAIN/ NAUSEA/VOMITING. HAD LOOSE BM'S FOR THE PAST 2-3 DAYS. VOIDS. C/O FREQUENT URINATION. IV SITE ON THE RFA IS PATENT AND INTACT. W/ 2 PURPLISH DISCOLORATION ON BUE. SIDE RAILS UPX2. CALL LIGHT ON REACH. PRIMARY NURSE GONZALO AT BEDSIDE FOR CONTINUITY OF CARE
[2018-08-24 19:27] VITALS: BP 113/59
[2018-08-24 19:38] VITALS: Ht 172.7 cm; Wt 78.9 kg
[2018-08-25 00:30] VITALS: BP 113/59
--- NOTE | 2018-08-25 04:41 | NUR ---
PT SLEPT WITH INTERVALS.BREATHING EASY AND NON-LABORED WITH OCCASSIONAL COUGHING NOTED.BREATHING TX GIVEN BY RT ORDERED.MEDICATED WITH DILAUDID 1 MG IVP X3 FOR CHEST/BACK PAIN WITH GOOD RELIEF.NO ASE NOTED FROM ZITHROMAX IVPB ATB.ON CONTACT ISOLATION FOR HX MDRO URINE.GOODHANDWASHING TECHNIQUE OBSERVED.ALL NEEDS MET.WILL CONTINUE TO MONITOR.
[2018-08-25 06:14] VITALS: BP 106/59
--- NOTE | 2018-08-25 07:30 | NUR ---
RECEIVED PT AMBULATING FROM RESTROOM TO BED, STEADY BALANCE AND GAIT NOTED. PATIENT IS ALERT AND ORIENTED, SPEECH CLEAR, PERRLA NOTED. PATIENT DENIES CP AT THIS TIME AND STATES SHE FEELS BETTER THAN YESTERDAY. PATIENT DENIES SOB, DYSURIA AND VAGINAL DISCHARGE. PATIENT HAS CALL LIGHT AND DENIES ANY NEEDS.
[2018-08-25 08:07] LABS: ALKALINE PHOSPHATASE 72 U/L (46-116); ALT/SGPT 16 U/L (14-59); AST/SGOT 11 U/L (15-37); BILIRUBIN TOTAL 0.5 mg/dL (0.20-1.00); CALCIUM 8.2 mg/dL (8.5-10.1); CARBON DIOXIDE 24.6 mmol/L (21-32); CHLORIDE SERUM 102 mmol/L (98-107); CREATININE SERUM 0.9 mg/dL (0.6-1.0); GLUCOSE SERUM 210 mg/dL (74-106); POTASSIUM SERUM 4.8 mmol/L (3.5-5.1); SODIUM SERUM 134 mmol/L (136-145); TOTAL PROTEIN, SERUM 6.4 g/dL (6.4-8.2)
[2018-08-25 08:30] VITALS: BP 108/63
[2018-08-25 08:30] LABS: ALBUMIN 3.1 g/dL (3.4-5.0)
--- NOTE | 2018-08-25 08:55 | NUR ---
PT RECEIVING BREATHING TX AND DENIES ANY NEEDS.
--- NOTE | 2018-08-25 10:03 | NUR ---
AT BEDSIDE, UPDATES PROVIDED TO PATIENT. PER OK TO DISCHARGE AND OK TO GIVE 1 TIME DOSE OF PO NORCO, WILL PLACE ORDER PER
[2018-08-25 10:04] VITALS: BP 108/63
--- NOTE | 2018-08-25 11:42 | NUR ---
PT IV DC'D CATH INTACT, DISCHARGE INSTRUCTIONS PROVIDED AND VERBALIZED UNDERSTANDING. PATIENT IS ALERT AND ORIENTED AND AMBULATORY. PT DC'D WITHOUT INCIDENT.
== END 2018-08-25 11:43 | disposition home or self-care (01) | DRG 202 ==
LOC: ED 14:38 → DU 17:50
PROVIDERS: Specialist; ADMIT Internal Medicine
DX: J20.9 Acute bronchitis, unspecified (principal); J44.1 Chronic obstructive pulmonary disease with (acute) exacerbation; I10 Essential (primary) hypertension; E11.9 Type 2 diabetes mellitus without complications; Z95.5 Presence of coronary angioplasty implant and graft
CPT/HCPCS: 36600; 83880; 84439; 85378; G0378; J0456; J1170; J1644; J2405; J2920; J3010; J7030; J7613; J7620; J7626; J7644; Q0092

== ENCOUNTER 2018-10-23 16:29 | Emergency (ER) | payer OTHER, MEDICAID ==
[~2018-10-23] VITALS: Ht 177.8 cm; Wt 80.5 kg
[2018-10-23 16:31] VITALS: Ht 177.8 cm; Wt 80.5 kg
[2018-10-23 17:05] LABS: UA SPECIFIC GRAVITY 1.025 (1.005-1.035); microscopic required? YES; urine erythrocyte 1+ (NEGATIVE)
[2018-10-23 18:19] VITALS: BP 135/63
== END 2018-10-23 18:19 | disposition home or self-care (01) ==
LOC: ED 16:29
PROVIDERS: Emergency Medicine
DX: N39.0 Urinary tract infection, site not specified (principal); I10 Essential (primary) hypertension; E11.9 Type 2 diabetes mellitus without complications; Z88.6 Allergy status to analgesic agent; Z88.1 Allergy status to other antibiotic agents; Z88.8 Allergy status to other drugs, medicaments and biological substances

== ENCOUNTER 2018-10-26 14:28 | Inpatient (IN) | payer OTHER, MEDICAID ==
[~2018-10-26] VITALS: Ht 172.7 cm; Wt 83.0 kg
[2018-10-26 15:25] VITALS: Ht 172.7 cm; Wt 83.0 kg
--- NOTE | 2018-10-26 17:49 | NUR ---
PT AMBULATED TO ROOM 11
--- NOTE | 2018-10-26 18:33 | NUR ---
BLOOD CULTURES COMPLETED BY LAB SEE LAB TIMES. PT STATES SHE WAS CALLED BY ED YESTERDAY FOR URINE CULTURE RESULTS AND ABX NEEDED TO BE CHANGED. ASSESSMENT COMPLETE SEE FLOW SHEET. PT DENIES PAIN AT THIS TIME. AWAITING URINE SAMPLE. CRIS MACIEL
[2018-10-26 18:34] LABS: BASOPHIL % 0.8 % (0-2); PLATELET COUNT 214 x10^3mcL (130-400)
[2018-10-26 18:37] LABS: RED CELL DISTRIBUTION WIDTH 14.8 % (11.5-14.5)
[2018-10-26 18:38] LABS: CALCIUM 9.3 mg/dL (8.5-10.1); CARBON DIOXIDE 21.6 mmol/L (21-32); CHLORIDE SERUM 102 mmol/L (98-107); CREATININE SERUM 0.9 mg/dL (0.6-1.0); GLUCOSE SERUM 126 mg/dL (74-106); POTASSIUM SERUM 4.1 mmol/L (3.5-5.1); SODIUM SERUM 136 mmol/L (136-145)
[2018-10-26 18:42] LABS: ALBUMIN 3.9 g/dL (3.4-5.0); ALKALINE PHOSPHATASE 77 U/L (46-116); ALT/SGPT 24 U/L (14-59); AST/SGOT 16 U/L (15-37); BILIRUBIN TOTAL 0.34 mg/dL (0.20-1.00); TOTAL PROTEIN, SERUM 7.2 g/dL (6.4-8.2)
--- NOTE | 2018-10-26 18:57 | NUR ---
PT AWARE OF PLAN OF CARE, URINE SENT TO LAB. RESTING IN BED WITH NO COMPLAINTS. DENIES PAIN AT THIS TIME. CRIS MACIEL
[2018-10-26 19:06] LABS: UA SPECIFIC GRAVITY 1.025 (1.005-1.035); microscopic required? YES; urine erythrocyte NEGATIVE (NEGATIVE)
--- NOTE | 2018-10-26 19:15 | NUR ---
RECEIVED REPORT FROM SANDRA MACIEL AND ASSUMED CARE OF PATIENT. PT. LAYING ON GURFABIENNE IN POSITON OF COMFORT. AAOX4, TALKING AND RESPONDING APPROPRIATELY, BREATHING E/U. NOT IN ANY ACUTE DISTRESS AT THIS TIME. CALL LIGHT IN REACH. DR. FRAZIER AT BEDSIDE TO DISCUSS RESULTS AND PLAN OF CARE WITH PATIENT. WILL CONTINUE TO MONITOR.
--- NOTE | 2018-10-26 20:20 | NUR ---
PT. MEDICATED WITH BENADRYL PRIOR TO ANTIBIOTICS GIVEN. WILL CONTINUE TO MONITOR FOR ALLERGIC REACTION.
--- NOTE | 2018-10-26 20:38 | NUR ---
REPORT GIVEN TO KULDEEP FOR FURTHER CARE OF PATIENT. ALL QUESTIONS AND CONCERNS ADDRESSED.
--- NOTE | 2018-10-26 20:45 | NUR ---
PT. TRANSPORTED TO MED SURG VIA WHEELCHAIR BY EMT. PT. STABLE AT TIME OF TRANSFER.
[2018-10-26 21:09] VITALS: BP 115/54
--- NOTE | 2018-10-26 21:19 | NUR ---
RECEIVED PT FROM ER, PT ADMIT FOR DRUG RESIST UTI, PT IS A/O X4, VERBAL RESPONSIVE, ABLE TO TELL WHAT HE NEEDS. LUNG SOUND CLEAR BILATERAL, NO COUGH, NO SOB, PT DENY ANY CHEST PAIN OR DISCOMFORT, BOWEL SOUND PRESENT ALL 4 QUADRANTS, NO DISTENTION, NO TENDER. PEDAL PULSE PRESENT BOTH FEET, TRACE BLE. IV AT RIGHT AC, NO LEAKING, NO INFILTRATION. ALL ADLS ASSIST, ALL NEED MET, CALL LIGHT IN REACH, WILL CONTINUE TO MONITOR.
--- NOTE | 2018-10-26 21:30 | NUR ---
PT IS A/O x4. ON MED SURG. DENIES ANY CHEST PAIN OR PRESSURE. PULSES PRESENT. TRACE EDEMA NOTED ON BLE. LUNGS CLEAR IN ALL FEILDS. ON RA, DENIES ANY SOB. EQUAL CHEST RISE AND FALL. SKIN WARM AND INTACT. DENIES ANY PAIN AT THIS TIME. PT IS C/O OF FEELING SHIVERS AND HUNGRY. CHECKED BG AND IT WAS 64. GAVE SNACKS AND WILL RECHECK BG. IV ON RAC INTACT AND PATENT, RUNNING GENTAMICIN FROM ED. BED IS AT LOWST SETTING. CALL LIGHT WITHIN REACH. WILL CONTIUE TO [facility].
--- NOTE | 2018-10-26 22:09 | NUR ---
RECHECKED SUGAR AND IS NOW 121. PT STATES FEELING MUCH BETTER. WILL CONTINUE TO MONITOR.
--- NOTE | 2018-10-27 01:55 | NUR ---
PT IS C/O 10/10 PAIN THROUGHOUT THHE BODY. GAVE PRN MORPHINE PER EMAR. NO OTHER COMPLAINTS. PT IN CONTACT ISO FOR MDRO IN URINE. PROTOCOLS FOLLOWED. WILL CONTINUE TO MONITOR.
[2018-10-27 06:17] VITALS: BP 118/57
--- NOTE | 2018-10-27 06:33 | NUR ---
PT IS RESTING IN BED. DENIES ANY DISTRESS AT THIS TIME. IV INTACT AND PATENT. NO ACUTE EVENT OCCURED AT NIGHT. IN CONTACT ISO. BED IS AT LOWEST SETTING. CALL LIGHT WITHIN REACH. WILL ENDORSE TO AM NURSE.
[2018-10-27 07:18] LABS: BASOPHIL % 0.6 % (0-2); PLATELET COUNT 154 x10^3mcL (130-400); RED CELL DISTRIBUTION WIDTH 14.4 % (11.5-14.5)
--- NOTE | 2018-10-27 07:20 | NUR ---
REPORT RCD FROM RAHEEM BOONE. PATIENT ON CONTACT PRECAUTIONS FOR MDRO URINE. IV TO RAC, NS 80 ML/HR WITHOUT COMPLICATIONS. BED LOW, CALL LIGHT WITHTIN REACH. PATIENT IN NO ACUTE DISTRESS. SHEREEN, STUDENT NURSE RCD REPORT WELL, COPY OF SBAR GIVEN, HE WILL MEDICATE PER MAR WITH INSTRUCTOR.
[2018-10-27 07:41] LABS: CALCIUM 8.7 mg/dL (8.5-10.1); CARBON DIOXIDE 21.5 mmol/L (21-32); CHLORIDE SERUM 105 mmol/L (98-107); CREATININE SERUM 0.8 mg/dL (0.6-1.0); GLUCOSE SERUM 129 mg/dL (74-106); MAGNESIUM 2.1 mg/dL (1.8-2.4); POTASSIUM SERUM 3.7 mmol/L (3.5-5.1); SODIUM SERUM 132 mmol/L (136-145)
--- NOTE | 2018-10-27 08:10 | NUR ---
SHIFT ASSESSMENT PERFORMED AND DOCUMENTED. REPORTS 12/16 ALL OVER PAIN. DISCUSSED PAIN MANAGEMENT. PATIENT USUALLY USES NORCO AT HOME. REFUSES TYLENOL, REQUESTS IV PAIN RELIEF. WILL DISCUSS WITH ATTENDING DOCTOR AND MEDICATE PER AUG.
--- NOTE | 2018-10-27 08:40 | NUR ---
MEDICATIONS PER MAR GIVEN TO STUDENT SHEREEN TO BE GIVEN WITH INSTRUCTOR.
--- NOTE | 2018-10-27 09:45 | NUR ---
SPOKE WITH DR. SYED PATIENT HAS WHEEZING BILATERALLY AND IS REQUESTING BREATHING TREATMENT. ALSO DISCUSSED PAIN MANAGEMENT PATIENT USES NORCO AT HOME FOR PAIN RELIEF AND ONLY HAS MORPHINE AND TYLENOL ON AUG. ADVISED PATIENT GIVEN MORPHINE FOR 7/10 ALL OVER BODY PAIN. DOCTOR WILL ENTER ORDERS.
[2018-10-27 09:53] VITALS: BP 115/66
--- NOTE | 2018-10-27 13:04 | NUR ---
PATIENT SITTING UP EATING LUNCH. REPORTS NO NEEDS AT THIS TIME. WILL MONITOR.
--- NOTE | 2018-10-27 15:05 | NUR ---
PATIENT REPORTING NAUSEA, VOMITED 2X, ZOFRAN GIVEN PER MAR
[2018-10-27 17:41] VITALS: BP 91/51
--- NOTE | 2018-10-27 19:20 | NUR ---
REPORT GIVEN TO RAHEEM BOONE. PATIENT ON CONTACT ISOLATION FOR MDRO URINE. SHE REPORTS PAIN TOLERABLE AT THIS TIME. IV TO RAC PATENT, NS 80 ML/HR INFUSING. BED LOW, CALL LIGHT WITHIN REACH. CARE ENDORSED.
--- NOTE | 2018-10-27 19:30 | NUR ---
PT IS A/O x4. ON MED SURG. DENIES ANY CHEST PAIN OR PRESSURE AT THIS TIME. PULSES ARE PRESENT. NO EDEMA NOTED. LUNGS CLEAR IN ALL FEILDS. ON RA, DENIES ANY SOB. EQUAL CHEST RISE AND FALL. NO SIGN OF RESP DISTRESS. BOWEL SOUNDS PRESENT x4. ABD ROUND AND SOFT. VOIDS FREELY. SKIN WARM AND INTACT. DENIES ANY PAIN AT THIS TIME. IV ON RAC INTACT AND PATENT. NO SIGN OF INFILTRATION OR IRRITATION NOTED. PT IN CONTACT ISO, PROTOCOL IN PLACE. BED IS AT LOWEST SETTING. CALL LIGHT WITHIN REACH. WILL CONTINUE TO MONTIOR.
[2018-10-27 21:12] VITALS: BP 105/45
--- NOTE | 2018-10-28 00:56 | NUR ---
PT IS RESTING IN BED WITH BOTH EYES CLOSED. BREATHING EVEN AND UNALBORED. NO SIGN OF DISTRESS NOTED. IV INTACT AND PATENT. BED IS AT LOWEST SETTING. CALL LIGHT WITHIN REACH. WILL CONTINUE TO MONTIOR.
[2018-10-28 05:01] VITALS: BP 122/59
--- NOTE | 2018-10-28 06:10 | NUR ---
PT IS RESTING IN BED. DENIES ANY PAIN OR DISTRESS. NO ACUTE EVENT OCCURED AT NIGHT. IV INTACT. URINE IS NOW CLEAR YELLOW. BED IS AT LOWEST SETTING. CALL LIGHT WITHIN REACH. WILL ENDORSE TO AM NURSE.
[2018-10-28 06:37] LABS: BASOPHIL % 0.8 % (0-2); PLATELET COUNT 153 x10^3mcL (130-400)
--- NOTE | 2018-10-28 07:10 | NUR ---
RECIEVED PT FROM NIGHT NURSE. PT IS LAYING DOWN IN BED WITH HOB UP AND EYES CLOSED. RESPIRATIONS EVEN AND UNLABORED ON ROOM AIR. CONTACT PRECAUTION SIGNS IMPLEMENTED. PT LOOKS TO BE IN NO ACUTE DISTRESS AT THIS TIME AND DENIES ANY PAIN. IV SITE PATENT WITH NO SIGNS OF ERYTHEMA OR SWELLIG AND IV FLUIDS INFUSING. BED IN LOWEST POSITION, CALL LIGHT WITHIN REACH. WILL CONTINUE TO MONITOR.
[2018-10-28 07:11] LABS: RED CELL DISTRIBUTION WIDTH 14.7 % (11.5-14.5)
[2018-10-28 08:13] VITALS: BP 107/56
[2018-10-28 10:45] LABS: ALKALINE PHOSPHATASE 57 U/L (46-116); ALT/SGPT 19 U/L (14-59); AST/SGOT 11 U/L (15-37); BILIRUBIN TOTAL 0.27 mg/dL (0.20-1.00); CALCIUM 8.8 mg/dL (8.5-10.1); CARBON DIOXIDE 23.2 mmol/L (21-32); CHLORIDE SERUM 109 mmol/L (98-107); CREATININE SERUM 0.8 mg/dL (0.6-1.0); GLUCOSE SERUM 109 mg/dL (74-106); POTASSIUM SERUM 4.3 mmol/L (3.5-5.1); SODIUM SERUM 141 mmol/L (136-145)
[2018-10-28 10:52] LABS: ALBUMIN 3.2 g/dL (3.4-5.0); TOTAL PROTEIN, SERUM 5.5 g/dL (6.4-8.2)
[2018-10-28 11:55] VITALS: BP 111/59
[2018-10-28 16:07] VITALS: BP 112/60
--- NOTE | 2018-10-28 18:46 | NUR ---
PT IS LAYING DOWN IN BED WITH HOB UP. PT LOOKS TO BE IN NO ACUTE DISTRESS AT THIS TIME. IV SITE PATENT WITH NO SIGNS OF ERYTHEMA OR SWELLING WITH IV FLUIDS INFUSING. RESPIRATIONS EVEN AND UNLABROED ON ROOM AIR. BED IN LOWEST POSITION. CALL LIGHT WITHIN REACH. WILL ENDORSE TO ONCOMING SHIFT.
--- NOTE | 2018-10-28 19:45 | NUR ---
RECEIVED PT FROM PREVIOUS SHIFT. AAO. MEDSURG. DENIES PAIN. DENIES CP. PT BREATHING E/U ON RA. NO S/S ACUTE DISTRESS. DENIES N/V. CONTACT ISOLATION IN PLACE FOR MDRO OF URINE. IV SITE CDI, NO ERYTHEMA OR SWELLING NOTED. CALL LIGHT WITHIN REACH. SAFETY MEASURES IN PLACE. WILL CONTINUE TO MONITOR.
--- NOTE | 2018-10-28 19:48 | NUR ---
NEW IV INSERTED INTO LFA #24 GAUGE BY PREVIOUS SHIFT RN.
[2018-10-28 20:09] VITALS: BP 118/56
--- NOTE | 2018-10-28 20:12 | NUR ---
PT C/O 01/16 ACHING BACK PAIN, MEDICATED PER EMAR.
--- NOTE | 2018-10-28 23:36 | NUR ---
PT C/O ITCHINESS TO BLE. UPON ASSESSMENT, SMALL HIVE BREAKOUT NOTED ON BLE. SKIN WITH SMALL PATCHES OF ERYTHEMA AND SWELLING. PT DENIES DIFFICULTY BREATHING. WILL PAGE DR. LAYNE.
--- NOTE | 2018-10-29 01:10 | NUR ---
PT RESTING IN BED WITH EYES CLOSED. NO S/S ACUTE DISTRESS. NO SIGNS OF PAIN NOTED. BREATHING E/U. CALL LIGHT WITHIN REACH. SAFETY MEASURES IN PLACE. WILL CONTINUE TO MONITOR.
--- NOTE | 2018-10-29 01:45 | NUR ---
PT MEDICATED PER EMAR FOR SHARP 7/10 BACK PAIN.
[2018-10-29 05:20] VITALS: BP 128/59
--- NOTE | 2018-10-29 06:54 | NUR ---
PT HAD RESTFUL NIGHT. NO S/S ACUTE DISTRESS. NO SIGNS OF PAIN NOTED. IV PATENT AND CDI, IVF INFUSING WELL. NO CHANGES OVERNIGHT. ALL NEEDS MET AND ATTENDED TO. SAFETY MEASURES IN PLACE. PT UNCOOPERATIVE WITH CARE AT THIS TIME. CALL LIGHT WITHIN REACH. WILL ENDORSE CARE TO ONCOMING SHIFT.
--- NOTE | 2018-10-29 07:30 | NUR ---
RECEIVED PT SITTING UP ON THE SIDE OF THE BED. NO ACUTE DISTRESS. AAOX4. RESP EVEN AND UNLABORED ON RA. IV TO LFA, NO REDNESS OR SWELLING NOTED. CONTACT ISOLATION. BED IN LOW POSITION, CALL LIGHT WITHIN REACH. WILL CONTINUE TO MONITOR.
[2018-10-29 08:14] VITALS: BP 109/64
[2018-10-29 11:50] VITALS: BP 112/60
--- NOTE | 2018-10-29 12:27 | NUR ---
PT SITTING UP IN BED EATING LUNCH. NO ACUTE DISTRESS. STATES BACK PAIN IS TOLERABLE AT THIS TIME. IVF INFUSING, NO REDNESS OR SWELLING TO IV SITE. REMINDED PT REGARDING NEED FOR URINALYSIS SAMPLE, PT VERBALIZED UNDERSTANDING. CALL LIGHT WITHIN REACH. WILL CONTINUE TO MONITOR.
[2018-10-29 14:07] LABS: microscopic required? YES; urine erythrocyte TRACE (NEGATIVE)
--- NOTE | 2018-10-29 15:42 | NUR ---
PT IN NO ACUTE DISTRESS. SLEEPING BUT EASILY AROUSABLE. RESP EVEN AND UNLABORED ON RA. NO PAIN NOTED. CONTACT ISOLATION. IVF INFUSING, NO REDNESS OR SWELLING NOTED. CALL LIGHT WITHIN REACH. WILL CONTINUE TO MONITOR.
[2018-10-29 16:56] VITALS: BP 129/58
--- NOTE | 2018-10-29 18:36 | NUR ---
PT SITTING UP IN BED. MEDICATED ORDERED FOR BACK/GEN BODY "BONE" PAIN. RESP EVEN AND UNLABORED ON RA. IVF INFUSING, NO REDNESS OR SWELLING. CONTACT ISOLATION. BED IN LOW POSITION, CALL LIGHT WITHIN REACH. WILL ENDORSE TO ONCOMING SHIFT.
--- NOTE | 2018-10-29 20:00 | NUR ---
RECEIVED PT IN BED, RESTING , A/O X4. DENIES HEADACHE/DIZZINESS. RESP. EVEN AND UNLABORED. ON ROOM AIR, NO ACUTE DISTRESS NOTED. AFEBRILE AND VITAL SIGNS STABLE. NO TELE. DENIES CP OR ANY DISCOMFORT AT THIS TIME. IVF, NS AT 80ML/HR, INTACT AND INFUSING VIA LFA, SITE CLEAR. AMBULATORY. VOIDING FREELY. ASSISTED WITH HS CARE. CALL LIGHT WITHIN REACH. WILL CONTINUE TO MONITOR.
[2018-10-29 20:33] VITALS: BP 114/61
--- NOTE | 2018-10-29 23:31 | NUR ---
COMPLAINED OF GEN. BODY PAIN, 11/16, REQUESTING PAIN MED, MEDICATED WITH MORPHINE SULFATE IV ORDERED. WILL CONTINUE TO MONITOR.
--- NOTE | 2018-10-30 01:27 | NUR ---
RESTING QUIETLY AT THIS TIME WITH EYES CLOSED, APPEARS ASLEEP, EASILY AROUSABLE. RESP. EVEN AND UNLABORED. NO ACUTE DISTRESS NOTED. IVF INTACT AND INFUSING WELL, SITE CLEAR. CALL LIGHT WITHIN REACH. WILL CONTINUE TO MONITOR.
[2018-10-30 04:50] VITALS: BP 119/54
--- NOTE | 2018-10-30 06:22 | NUR ---
AFEBRILE AND VITAL SIGNS STABLE. SLEPT MOST OF THE NIGHT. DUE MEDS GIVEN ORDERED, PRAD[place]. WELL. RESP. EVEN AND UNLABORED. NO ACUTE DISTRESS NOTED. IVF, INTACT AND INFUSING WELL, SITE CLEAR. COMPLAINED OF GEN. BODY PAIN, 5/10, MEDICATED WITH MORPHINE SULFATE IV ORDERED WITH RELIEF. RESTING QUIETLY IN BED AT THIS TIME. WILL CONTINUE TO MONITOR.
[2018-10-30 07:02] LABS: ALKALINE PHOSPHATASE 63 U/L (46-116); ALT/SGPT 22 U/L (14-59); AST/SGOT 11 U/L (15-37); BILIRUBIN TOTAL 0.41 mg/dL (0.20-1.00); CALCIUM 8.9 mg/dL (8.5-10.1); CARBON DIOXIDE 26.1 mmol/L (21-32); CHLORIDE SERUM 105 mmol/L (98-107); CREATININE SERUM 0.7 mg/dL (0.6-1.0); GLUCOSE SERUM 105 mg/dL (74-106); MAGNESIUM 1.8 mg/dL (1.8-2.4); SODIUM SERUM 139 mmol/L (136-145)
[2018-10-30 07:03] LABS: TOTAL PROTEIN, SERUM 5.8 g/dL (6.4-8.2)
--- NOTE | 2018-10-30 07:14 | NUR ---
RECEIVED PT FROM SHIFT NURSE ASLEEP BUT AROUSABLE. NO ACUTE DISTRESS NOTED. IV INTACT AND PATENT. BED IN LOW POSITION. CALL LIGHT WITHIN REACH. WILL CONTINUE TO MONITOIR.
[2018-10-30 07:29] LABS: BASOPHIL % 0.6 % (0-2); PLATELET COUNT 148 x10^3mcL (130-400); RED CELL DISTRIBUTION WIDTH 14.9 % (11.5-14.5)
[2018-10-30 08:37] VITALS: BP 105/54
--- NOTE | 2018-10-30 10:06 | NUR ---
PT RESTING IN BED WATCHING TV. DENIES ANY BACK PAIN AT THIS TIME. BED IN LOW POSITION. CALL LIGHT NATI LIZ. WILL CONTINUE TO MONITOR.
--- NOTE | 2018-10-30 11:58 | NUR ---
PT C/O OF BACK PAIN 12/16. GAVE MORPHINE ORDERED. WILL CONTINUE TO MONITOR.
--- NOTE | 2018-10-30 12:27 | NUR ---
PT SITTING UP IN BED EATING LUNCH. DENIES ANY BACK PAIN. CALL LIGHT WITHIN REACH. WILL CONTINUE TO MONITOR.
[2018-10-30 16:00] VITALS: BP 106/54
--- NOTE | 2018-10-30 17:05 | NUR ---
PT ASLEEP BUT AROUSABLE. NO ACUTE DISTRESS NOTED. CALL LIGHT WITHIN REACH. WILL CONTINUE TO MONITOR.
--- NOTE | 2018-10-30 18:07 | NUR ---
PT SITTING UP IN BED EATING DINNER. NO C/O OF BACK PAIN. IV INTACT AND PATENT. CALL LIGHT WITHIN REACH. WILL BE ENDORSED.
--- NOTE | 2018-10-30 19:25 | NUR ---
SHIFT REASSESSMENT DONE.PATIENT ALERT AND ORIENTED.CONTACT ISOLATION,MDRO URINE.BREATHING EASY.AMBULATORY.NS AT 80 CC/ HOUR.LFA.MEDSURG.SKIN INTACT.BLE EDMA NOTED.PAIN SHOT WAS JUST GIVEN.CALL LIGHT IN REACH.
--- NOTE | 2018-10-30 21:04 | NUR ---
PM MEDS GIVEN,SWALLOWS WELL.BLOOD SUGAR 126.HS CARE BY SELF,GIVEN WIPES.MADE SELF COMFORTABLE.
[2018-10-30 22:18] VITALS: BP 107/50
--- NOTE | 2018-10-31 01:07 | NUR ---
CHECKED AT INTERVALS FOR NEEDS AND SAFETY.
[2018-10-31 05:08] VITALS: BP 106/50
[2018-10-31 07:07] LABS: ALKALINE PHOSPHATASE 68 U/L (46-116); ALT/SGPT 29 U/L (14-59); AST/SGOT 11 U/L (15-37); BILIRUBIN TOTAL 0.4 mg/dL (0.20-1.00); CALCIUM 8.6 mg/dL (8.5-10.1); CARBON DIOXIDE 27.3 mmol/L (21-32); CHLORIDE SERUM 104 mmol/L (98-107); CREATININE SERUM 0.8 mg/dL (0.6-1.0); GLUCOSE SERUM 107 mg/dL (74-106); MAGNESIUM 1.7 mg/dL (1.8-2.4); SODIUM SERUM 140 mmol/L (136-145)
--- NOTE | 2018-10-31 07:08 | NUR ---
RECEIVED PT FROM SHIFT NURSE ASLEEP BUT AROUSABLE. NO ACUTE DISTRESS NOTED. IV INTACT AND PATENT. BED IN LOW POSITION. CALL LIGHT WITHIN REACH. WILL CONTINUE TO MONITOR.
[2018-10-31 07:12] LABS: TOTAL PROTEIN, SERUM 5.9 g/dL (6.4-8.2)
[2018-10-31 07:16] LABS: BASOPHIL % 0.5 % (0-2); PLATELET COUNT 150 x10^3mcL (130-400)
[2018-10-31 07:20] LABS: RED CELL DISTRIBUTION WIDTH 14.6 % (11.5-14.5)
[2018-10-31 08:53] VITALS: BP 107/54
--- NOTE | 2018-10-31 09:46 | NUR ---
PT C/O OF BACK PAIN 03/18. GAVE MORPHINE ORDERED. WILL CONTINUE TO MONITOR.
--- NOTE | 2018-10-31 10:00 | NUR ---
PT RESTING IN BED. DENIES ANY BACK PAIN. NO ACUTE DISTRESS NOTED. CALL LIGHT WITHIN REACH. WILL CONTINUE TO MONITOR.
--- NOTE | 2018-10-31 12:10 | NUR ---
PT ASLEEP BUT AROUSABLE. NO ACUTE DISTRESS NOTED. FAMILY MEMBER AT BEDSIDE. CALL LIGHT WITHIN REACH. WILL CONTINUE TO MONITOR.
--- NOTE | 2018-10-31 14:18 | NUR ---
PT C/O OF BACK PAIN. RESOURCE NURSE GAVE MORPHINE ORDERED. WILL CONTINUE TO MONITOR.
[2018-10-31 17:40] VITALS: BP 95/50
--- NOTE | 2018-10-31 18:22 | NUR ---
PT SITTING UP IN BED WATCHING TV. DENIES BACK PAIN AT THIS TIME. IV INTACT AND PATENT. IV INTACT AND PATENT. BED IN LOW POSITION. CALL LIGHT WITHIN REACH. WILL BE ENDORSED.
--- NOTE | 2018-10-31 18:48 | NUR ---
CALLED TO PICC LINE SERVICE AND MESSAGE LEFT.
--- NOTE | 2018-10-31 19:29 | NUR ---
SHIFT REASSESSMENT DONE.PATIENT ALERT AND ORIENTED.MAKING NEEDS KNOWN,BREATHING EASY.AMBULATORY,GEN WEAKNESS.NS AT 80 CC/ HOUR.MEDSURG PATIENT.SKIN INTACT.TRACE EDMA LOWER EXT.ON HEPARIN SQ.VOIDING BRP.PAIN MED REPORT NOW SHE IS IN NORCO PAIN PILL.CALL LIGHT IN REACH.
[2018-10-31 20:41] VITALS: BP 121/55
--- NOTE | 2018-10-31 21:48 | NUR ---
PATIENT PM MEDS,SWALLOWS WELL.
--- NOTE | 2018-10-31 23:20 | NUR ---
REMINDED MSO4 GOT DISCONTINUED,ONLY NORCO NOW.OFFERED AMBIEN BUT DECLINE AT THIS MOMENT.CONTACT ISOLATION MAINTAINED.CALL LIGHT IN REACH.
--- NOTE | 2018-11-01 01:01 | NUR ---
PATIENT CHECKED AT INTERVALS FOR NEEDS AND SAFETY.
--- NOTE | 2018-11-01 04:14 | NUR ---
PATIENT GIVEN ANOTHER NORCO REQUESTED.BRP,STAEDY GAIT.
--- NOTE | 2018-11-01 05:11 | NUR ---
I AND O MEASURED AND RECORDED.IVF INFUSING.
[2018-11-01 06:20] VITALS: BP 106/43
[2018-11-01 06:33] LABS: BASOPHIL % 0.6 % (0-2); PLATELET COUNT 148 x10^3mcL (130-400); RED CELL DISTRIBUTION WIDTH 14.5 % (11.5-14.5)
--- NOTE | 2018-11-01 06:36 | NUR ---
NEW BAG OF IVFF.IV SITE GOOD.WILL ENDORSE TO NEXT SHIFT.
[2018-11-01 07:03] LABS: CALCIUM 8.5 mg/dL (8.5-10.1); CHLORIDE SERUM 106 mmol/L (98-107); CREATININE SERUM 0.7 mg/dL (0.6-1.0); GLUCOSE SERUM 110 mg/dL (74-106); POTASSIUM SERUM 3.9 mmol/L (3.5-5.1); SODIUM SERUM 140 mmol/L (136-145)
--- NOTE | 2018-11-01 07:16 | NUR ---
RECEIVED REPORT FROM MONIQUE MACIEL. PT RESTING COMFORTABLY IN BED. IV TO LFA IS PATENT AND INFUSING NS @ 80 ML/HR. NO REDNESS OR PAIN. PT ON ROOM AIR. NO C/O SOB AND NO DISTRESS NOTED. ALL NEEDS MET. ALL QUESTIONS AND CONCERNS ADDRESSED.
[2018-11-01 09:45] VITALS: BP 113/59
--- NOTE | 2018-11-01 10:36 | NUR ---
IN TO SEE PATIENT AND ADMINISTER MEDICATION FOR SHOULDER PAIN 11/16. WILL REASSESS.
--- NOTE | 2018-11-01 13:37 | NUR ---
Intervention/RDN Recommendation(s): 1. Continue on CCHO diet as tolerated.
--- NOTE | 2018-11-01 13:37 | NUR ---
Initial Nutrition Assessment- Dx: adb pain PMHx: CHF, HTN, DM PSHx: None Labs: (11/01) Meds: ambien, colace, coreg, D10%, Glucophage, humulin R, lipitor, morphine sulfate, norco, Tylenol, zofran Diet: CCHO PO Intakes: 75-100% x 3 days; adquate Ht: 172.72 cm/68 inches/5'8" Wt: 83 kg/183 pounds BMI: 27.8 kg/m2, slightly overweight for age IBW: 140 pounds/64 kg %IBW: 130% ADJBW: 151 pounds/69 kg UBW: unknown Age: 73 Food Allergies: NKFA Skin: Intact Lenin 22 Edema: none GI: Last BM 10/28/18 x 1 Pt admitted with dx: UTI, HTN, chronic HF, hyperlipidemia Per physician progress note, Pt reports feeling better today, has been on oral Bactrim x 5 days. Plan to continue abx until symptoms resolve. Pt has good PO intakes, 75-100% consumption x 3 days, denies questions/concerns for RDN at this time, decline offer for DM diet education at this time. RDN will attempt to re-edu upon f/u visit. Problem with: N: no V: no D: no C: no Problems with: Chewing: no Swallowing: no Current appetite: good Recent wt changes: none Vitamin/Supplement: none Special Diet at Home: regular Physical activity: none Education: none; declined DM diet education at this time. Estimated Nutritional Needs Based on adj body weight of 69 kg. Energy: 3387-0549 kcal/d (25-30 kcal/kg for maintenance) Protein: 69-83 gm/d (1-1.2 gm/kg for maintenance) Fluid: 8493-9258 mL/d (1 mL/kcal) or per MD. Nutrition Diagnosis 1. Impaired nutrient utilization related to endocrine dysfunction as evidenced by glucose 105-129 (between 10/26-11/01). 2. Overweight for age related to energy imbalance as evidenced by BMI of 27.8 kg/m2. Intervention/RDN Recommendation(s): 1. Continue on CCHO diet as tolerated. Monitor/Evaluate Goal: Intake via PO intakes to meet at least 75% of estimated needs with acceptable tolerance within 3-5 days. Monitor: PO intakes and/or nutrition support tolerance, Labs, GI function, Skin integrity, Weights. F/U in 3-5 days as moderate risk (11/04-)
--- NOTE | 2018-11-01 15:36 | NUR ---
DR DASILVA IN TO SEE AND ASSESS PATIENT. DISCUSSED PLAN OF CARE. DISCUSSED PICC INSERTION AND ALL PT CONCERNS ADDRESSED. PT TO HAVE PICC INSERTED AND DISCHARGE HOME WITH CONTINUED ANTIBIOTICS.
[2018-11-01] MEDS ORDERED: PYR100 PO (16:29)
[2018-11-01] MEDS ORDERED: GENTAMICIN80 MG/102 IV ×2 (16:42→16:44)
[2018-11-01 17:14] VITALS: BP 94/47
--- NOTE | 2018-11-01 18:30 | NUR ---
PICC INSERTION COMPLETE. PT C/O INCREASED PAIN AND REQUESTS IV MORPHINE. [facility] CALLED WITH NO ANSWER. WILL REATTEMPT. PLACEMENT XRAY TO BE COMPLETED.
--- NOTE | 2018-11-01 19:12 | NUR ---
REPORT GIVEN TO MONIQUE MACIEL. PATIENT SITTING COMFORTABLY AT EDGE OF BED. IV TO LFA IS PATENT AND INFUSING NS @ 80 ML/HR. NO REDNESS OR PAIN. PICC PLACEMENT CONFIRMED BY XRAY AND HAS JUST RECEIVED OK TO USE. PT ON ROOM AIR. NO DISTRESS NOTED. ALL QUESTIONS AND CONCERNS ADDRESSED.
--- NOTE | 2018-11-01 19:18 | NUR ---
PATIENT WANTED MSO4 AFTER THE PICC LINE BUT CHARGE NURSE SAYS NO MSO4,WILL GIVE NORCO INSTEAD.
--- NOTE | 2018-11-01 19:31 | NUR ---
SHIFT REASSESSMENT DONE.PATIENT ALERT AND ORIENTED.RELIEF THAT NORCO IS GIVEN NOW.NO MSO4,MADE HER AWARE.BREATHING EASY.AMBULATORY,GEN WEAKNESS,SLIGHT.NS AT 80 CC/ HOUR LFA,ALSO NYA PICC LINE INPLACE.INSERTED TODAY WITH NO INCIDENT.MEDSURG PATIENT.NO CHEST PAIN.HAD BM TODAY.SKIN INTACT.HEPARIN SQ.ALSO HAS EDEMA LOWER EXT TRACE.PYRIDIUM ALSO TID.CALL LIGHT IN RAECH.CONTINOUS ON CONTACT ISO,MDRO URINE.CALL LIGHT IN REACH.
[2018-11-01 20:58] VITALS: BP 108/52
--- NOTE | 2018-11-01 21:33 | NUR ---
LFA IV SITE SWOLLEN,PICC LINE USED NOW WITHOUT ANY INCIDENT.
--- NOTE | 2018-11-01 21:39 | NUR ---
ALL PM MEDS GIVEN,SWALLOWS WELL.BLOOD SUGAR 117.HS SNACK GIVEN.CALL LIGHT IN REACH.
--- NOTE | 2018-11-01 23:33 | NUR ---
WAITING FOR PAIN PILL,ALVAREZ GIVEN,SAYS PAIN DO NOT GO AWAY.
--- NOTE | 2018-11-02 01:03 | NUR ---
CHECKED AT INTERVALS FOR NEEDS AND SAFETY.CALL LIGHT IN REACH.
[2018-11-02 05:55] VITALS: BP 94/51
--- NOTE | 2018-11-02 06:04 | NUR ---
I AND O MEASURED.NS AT 80 CC/ HOUR.IV SITE PICC LINE IN PLACE.IVF INFUSING.WILL ENDORSE TO NEXT SHIFT.
[2018-11-02 06:19] LABS: BASOPHIL % 0.7 % (0-2); PLATELET COUNT 156 x10^3mcL (130-400); RED CELL DISTRIBUTION WIDTH 14.5 % (11.5-14.5)
[2018-11-02 06:36] LABS: CALCIUM 8.7 mg/dL (8.5-10.1); CHLORIDE SERUM 107 mmol/L (98-107); CREATININE SERUM 0.8 mg/dL (0.6-1.0); GLUCOSE SERUM 109 mg/dL (74-106); POTASSIUM SERUM 4.1 mmol/L (3.5-5.1); SODIUM SERUM 142 mmol/L (136-145)
--- NOTE | 2018-11-02 07:30 | NUR ---
PT ENDORSE TO ME THIS MORNING. LAYING IN BED RESTING. AA/O X4 BREATHING EVEN AND UNLABORED OR RA. NO ACUTE RESP DISTRESS OR SOB NOTED. MEDSURG. DENIES ANY CP OR PRESSURE. VOIDS FREELY. AMB. PICC LINE TO NYA INTACT AND PATENT. CALL LIGHT IN REACH / BED IN LOW POSITION .WILL CONTINUE PLAN OF CARE.
--- NOTE | 2018-11-02 08:54 | NUR ---
PT C/O ABD PAIN, MEDICATED PER EMAR.
[2018-11-02 09:00] VITALS: BP 140/59
--- NOTE | 2018-11-02 13:20 | NUR ---
PT TOLERATED 100% OF HER LUNCH. STATED HER PAIN IS MUCH BETTER. WILL CONTINUE PLAN OF CARE.
[2018-11-02] MEDS ORDERED: GENTAMICIN IV (15:02)
[2018-11-02 15:08] VITALS: BP 140/59
--- NOTE | 2018-11-02 17:31 | NUR ---
PT C/O ABD PAIN, MEDICATED PER EMAR. WILL CONTINUE TO MONITOR.
[2018-11-02 17:34] VITALS: BP 105/63
--- NOTE | 2018-11-02 18:16 | NUR ---
[facility] WILL DELIVER THE ANTIBIOTIC TO PATIENT'S HOUSE TOMORROW AM. WE CAN DISCHARGE THE PAITENT AFTER TONIGHT DOSE OF ANTIBIOTIC. PATIENT AND FAMILY UPDATED THIS INFO.
--- NOTE | 2018-11-02 18:43 | NUR ---
NO ACUTE CHANGES AT THIS TIME. NO ACUTE RESP DISTRESS OR SOB NOTED. DENIES ANY ABD PAIN, MEDICATED PER EMAR. WILL ENDORSE TO INCOMING RN.
[2018-11-02 19:45] VITALS: BP 114/62
--- NOTE | 2018-11-02 19:51 | NUR ---
PT IS AWAKE AND ORIENTED X4. PT DENIES NAVARRO OR DIZZINESS AT THIS TIME. PT IS CALM AND COOPERATIVE WITH NURSING CARE. PT DENIES CP OR PRESSURE AT THIS TIME. PT HAS PALPABLE PULSES BILAT ALL EXTREMITIES. TRACE EDEMA NOTED TO BLE. PT ON HEPARIN SQ AND TOLERATING WELL. PT HAS CLEAR LUNG SOUNDS. RESPIRATIONS EVEN AND UNLABORED ON ROOM AIR. PT DENIES SOB. PT HAS ACTIVE BOWEL SOUNDS. PT DENIES ABD PAIN AND N/V AT THIS TIME. PT ABD SOFT AND NONTENDER TO UPON PALPATION. PT VOIDS FREELY ON OWN BUT ON CONTACT ISO. PT ON IV ANTIBIOTCS FOR UTI AND TOLERATING WELL. PT AMBULATORY WITH STEADY GAIT. PT SKIN CDI. IV FLUIDS NS RUNNING AT 80 ML/HR TO PICC LINE DOUBLE LUMEN TO NYA. PT DENIES PAIN OR DISCOMFORT AT THIS TIME. NO SIGNS OF DISTRESS. WILL CONTINUE TO MONITOR.
== END 2018-11-02 22:10 | disposition home health service (06) | DRG 690 ==
LOC: ED 14:28 → MU 19:49
PROVIDERS: Emergency Medicine; Internal Medicine Pulmonary Disease; ADMIT Internal Medicine Pulmonary Disease
DX: N39.0 Urinary tract infection, site not specified (principal); I50.22 Chronic systolic (congestive) heart failure; B96.29 Other Escherichia coli [E. coli] as the cause of diseases classified elsewhere; R31.9 Hematuria, unspecified; I11.0 Hypertensive heart disease with heart failure; E11.9 Type 2 diabetes mellitus without complications; J44.9 Chronic obstructive pulmonary disease, unspecified; I25.10 Atherosclerotic heart disease of native coronary artery without angina pectoris; Z68.24 Body mass index [BMI] 24.0-24.9, adult; Z87.891 Personal history of nicotine dependence; Z79.84 Long term (current) use of oral hypoglycemic drugs; Z95.5 Presence of coronary angioplasty implant and graft; Z16.24 Resistance to multiple antibiotics
CPT/HCPCS: 82962; C1751; J1200; J1580; J1644; J2270; J2405; J3010; J3475; J7030; Q0092; Q0163

== ENCOUNTER 2018-11-08 13:09 | Emergency (ER) | payer OTHER, MEDICAID ==
[~2018-11-08] VITALS: Ht 177.8 cm; Wt 78.9 kg
[~2018-11-08 13:09] MED LIST changes: +GENTAMICIN IV; +GENTAMICIN80 MG/102 IV; +PYR100 PO
[2018-11-08 13:14] VITALS: Ht 177.8 cm; Wt 78.9 kg
[2018-11-08 14:15] LABS: BASOPHIL % 0.8 % (0-2); PLATELET COUNT 225 x10^3mcL (130-400); RED CELL DISTRIBUTION WIDTH 14.3 % (11.5-14.5)
[2018-11-08 14:19] LABS: CALCIUM 9.2 mg/dL (8.5-10.1); CARBON DIOXIDE 28.5 mmol/L (21-32); CHLORIDE SERUM 102 mmol/L (98-107); CREATININE SERUM 0.9 mg/dL (0.6-1.0); GLUCOSE SERUM 126 mg/dL (74-106); POTASSIUM SERUM 3.8 mmol/L (3.5-5.1); SODIUM SERUM 139 mmol/L (136-145)
[2018-11-08 14:24] LABS: microscopic required? YES; urine erythrocyte 1+ (NEGATIVE)
[2018-11-08 15:42] VITALS: BP 109/61
== END 2018-11-08 15:42 | disposition home or self-care (01) ==
LOC: ED 13:09
PROVIDERS: Emergency Medicine
DX: R10.30 Lower abdominal pain, unspecified (principal); I10 Essential (primary) hypertension; E11.9 Type 2 diabetes mellitus without complications; J44.9 Chronic obstructive pulmonary disease, unspecified; E78.00 Pure hypercholesterolemia, unspecified; Z98.890 Other specified postprocedural states; Z88.1 Allergy status to other antibiotic agents; Z88.0 Allergy status to penicillin; Z88.6 Allergy status to analgesic agent
CPT/HCPCS: 36415; J3010

== ENCOUNTER 2018-12-02 18:45 | Observation (INO) | payer OTHER, MEDICAID ==
[~2018-12-02] VITALS: Ht 172.7 cm; Wt 78.0 kg
[2018-12-02 18:49] VITALS: Ht 172.7 cm; Wt 78.0 kg
[2018-12-02 21:10] LABS: BASOPHIL % 0.7 % (0-2); PLATELET COUNT 165 x10^3mcL (130-400); RED CELL DISTRIBUTION WIDTH 13.5 % (11.5-14.5)
[2018-12-02 21:14] LABS: CALCIUM 8.9 mg/dL (8.5-10.1); CARBON DIOXIDE 27.8 mmol/L (21-32); CHLORIDE SERUM 106 mmol/L (98-107); GLUCOSE SERUM 115 mg/dL (74-106); POTASSIUM SERUM 3.5 mmol/L (3.5-5.1); SODIUM SERUM 144 mmol/L (136-145)
[2018-12-02 21:14] LABS: microscopic required? YES; urine erythrocyte 2+ (NEGATIVE)
[2018-12-02 21:19] LABS: ALBUMIN 3.5 g/dL (3.4-5.0); ALKALINE PHOSPHATASE 74 U/L (46-116); ALT/SGPT 23 U/L (14-59); AST/SGOT 10 U/L (15-37); BILIRUBIN TOTAL 0.3 mg/dL (0.20-1.00); TOTAL PROTEIN, SERUM 6.7 g/dL (6.4-8.2)
[2018-12-02 23:54] VITALS: BP 139/57
[2018-12-03 05:17] VITALS: BP 105/51
[2018-12-03 06:10] LABS: BASOPHIL % 0.7 % (0-2); PLATELET COUNT 148 x10^3mcL (130-400); RED CELL DISTRIBUTION WIDTH 13.8 % (11.5-14.5)
[2018-12-03 06:22] LABS: CALCIUM 8.5 mg/dL (8.5-10.1); CARBON DIOXIDE 25.7 mmol/L (21-32); CHLORIDE SERUM 108 mmol/L (98-107); CREATININE SERUM 0.8 mg/dL (0.6-1.0); GLUCOSE SERUM 101 mg/dL (74-106); POTASSIUM SERUM 3.6 mmol/L (3.5-5.1); SODIUM SERUM 143 mmol/L (136-145)
[2018-12-03 07:28] VITALS: BP 125/49
[2018-12-03 14:02] VITALS: BP 125/49
== END 2018-12-03 14:30 | disposition home or self-care (01) | DRG 392 ==
LOC: ED 18:45 → MU 23:06
PROVIDERS: Emergency Medicine; ADMIT Internal Medicine Pulmonary Disease
DX: R10.2 Pelvic and perineal pain (principal); R35.0 Frequency of micturition; J44.9 Chronic obstructive pulmonary disease, unspecified; E11.9 Type 2 diabetes mellitus without complications; I11.9 Hypertensive heart disease without heart failure; I25.10 Atherosclerotic heart disease of native coronary artery without angina pectoris; F17.210 Nicotine dependence, cigarettes, uncomplicated; Z95.5 Presence of coronary angioplasty implant and graft
CPT/HCPCS: 82962; 99406; G0378; J1580; J3490; J7030

== ENCOUNTER 2018-12-19 13:02 | Emergency (ER) | payer OTHER, MEDICAID ==
[~2018-12-19] VITALS: Ht 177.8 cm; Wt 78.5 kg
[2018-12-19 13:22] VITALS: Ht 177.8 cm; Wt 78.5 kg
[2018-12-19 17:38] VITALS: BP 98/63
== END 2018-12-19 17:38 | disposition home or self-care (01) ==
LOC: ED 13:02
DX: J44.1 Chronic obstructive pulmonary disease with (acute) exacerbation (principal); F17.210 Nicotine dependence, cigarettes, uncomplicated; I10 Essential (primary) hypertension; E11.9 Type 2 diabetes mellitus without complications; E78.00 Pure hypercholesterolemia, unspecified; Z98.890 Other specified postprocedural states; Z88.1 Allergy status to other antibiotic agents; Z88.8 Allergy status to other drugs, medicaments and biological substances; Z88.6 Allergy status to analgesic agent; Z91.041 Radiographic dye allergy status; Z88.0 Allergy status to penicillin
CPT/HCPCS: 99406; J7030; J7512; J7613; J7644; Q0092

== ENCOUNTER 2019-01-16 19:53 | Observation (INO) | payer OTHER, MEDICAID ==
[~2019-01-16] VITALS: Ht 172.7 cm; Wt 85.3 kg
--- NOTE | 2019-01-16 20:09 | NUR ---
PATIENT SEEN WITH COMPLAINT OF LOWER ABDOMINAL PAIN X 3 DAYS, DIZZINESS AND LOSS OF APPETITE. MD AT THE BEDSIDE. PATIENT REPORTS FREQUENCY, CHILLS, LOW BACK PAIN.
[2019-01-16 20:29] LABS: microscopic required? YES; urine erythrocyte 2+ (NEGATIVE)
[2019-01-16 20:55] LABS: BASOPHIL % 0.8 % (0-2); PLATELET COUNT 206 x10^3mcL (130-400); RED CELL DISTRIBUTION WIDTH 14.1 % (11.5-14.5)
[2019-01-16 21:08] LABS: CALCIUM 8.6 mg/dL (8.5-10.1); CARBON DIOXIDE 25.3 mmol/L (21-32); CHLORIDE SERUM 104 mmol/L (98-107); CREATININE SERUM 0.9 mg/dL (0.6-1.0); GLUCOSE SERUM 99 mg/dL (74-106); POTASSIUM SERUM 3.5 mmol/L (3.5-5.1); SODIUM SERUM 143 mmol/L (136-145)
[2019-01-16 21:12] LABS: ALBUMIN 3.4 g/dL (3.4-5.0); ALKALINE PHOSPHATASE 72 U/L (46-116); ALT/SGPT 21 U/L (14-59); AST/SGOT 13 U/L (15-37); BILIRUBIN TOTAL 0.3 mg/dL (0.20-1.00); TOTAL PROTEIN, SERUM 6.5 g/dL (6.4-8.2)
--- NOTE | 2019-01-16 21:52 | NUR ---
PATIENT IS RESTING, REQUESTING PAIN MEDICATION WHEN AWAKEN.
--- NOTE | 2019-01-16 23:00 | NUR ---
ANTIBIOTIC INFUSED. PATIENT REQUEST FOOD WAS GIVE SANDWICH.
[2019-01-17] VITALS (7 sets, daily range): BP systolic 102–116; BP diastolic 50–63
--- NOTE | 2019-01-17 00:28 | NUR ---
pATIENT AMBULATED TO THE BATHROOM. rEPORT WAS GIVEN TO GAGAN, PATIENT WILL BE TRANSPORTED TO ROOM 239.
--- NOTE | 2019-01-17 01:04 | NUR ---
SPOKE WITH PHARMACY, SHERIN TO VERIFY GENTAMACIN DOSAGE AT 0100. PER PHARMACY OKAY TO GIVE AMOUNT ORDERED. CHARGE NURSE MADE AWARE.
--- NOTE | 2019-01-17 01:06 | NUR ---
RECEIVED PT FROM ED VIA [facility]. ORIENTED PT TO ROOM AND SURROUNDINGS. IV NOTED TO RH PATENT AND INTACT. INSTRUCTED PT ON THE USE OF CALL LIGHT FOR ASSISTANCE. ENDORSED PT TO PRIMARY NURSE GAGAN
--- NOTE | 2019-01-17 01:19 | NUR ---
DR WOODALL MADE AWARE OF LACTIC ACID 2.6. NO NEW ORDERED RECIVED. WILL CONT TO MONITOR PT. ALSO MADE AWARE OF GENTAMACIN LABS IN THE AM.
--- NOTE | 2019-01-17 01:50 | NUR ---
LAB REPORTED LACTIC ACID OF 2.2. PER PRIOR MD ORDER, DR WOODALL WILL CONT TO MONITOR. NO NEW ORDERS RECIEVED. LABS TRENDING DOWN.
--- NOTE | 2019-01-17 06:05 | NUR ---
PT SLEPT ON AND OFF THROUGH OUT THE NIGHT ONCE ARRIVED FROM ED. PT IS MED SURG, DENIES ANY CHEST PAIN OR SOB AT THIS TIME. PT PULSES PALPABLE, NO EDEMA NOTED. PT HAS DIMINSHED LUNG SOUNDS, BREATHING EVEN AND UNLABORED. PT LAST BM 01/16. PT STATES BURNING SENSATION WHEN URINATING. PT AMBULATORY. PT C/O OF INSOMNIA, GAVE X1 AMBIEN PER MD ORDER. PT IV TO CDI, NO REDNESS OR SWELLING NOTED. PT COOPERATIVE WITH NURSING CARE, NO ACUTE CHANGES DURING THE NIGHT. WILL CONT TO MONITOR AND ENDORSE CARE TO DAY SHIFT NURSE.
[2019-01-17 07:04] LABS: CALCIUM 8.4 mg/dL (8.5-10.1); CARBON DIOXIDE 25.4 mmol/L (21-32); CHLORIDE SERUM 107 mmol/L (98-107); CREATININE SERUM 0.8 mg/dL (0.6-1.0); GLUCOSE SERUM 114 mg/dL (74-106); PHOSPHOROUS 4.6 mg/dL (2.5-4.9); POTASSIUM SERUM 3.5 mmol/L (3.5-5.1); SODIUM SERUM 142 mmol/L (136-145)
[2019-01-17 07:12] LABS: BASOPHIL % 0.5 % (0-2); PLATELET COUNT 155 x10^3mcL (130-400); RED CELL DISTRIBUTION WIDTH 14.2 % (11.5-14.5)
--- NOTE | 2019-01-17 07:21 | NUR ---
RECEIVED ASLEEP BUT AROUSABLE. IN NO RESP. DISTRESS. NO C/O PAIN OR DISCOMFORT. VS WNL. CALL LIGHT WITHIN REACH. WILL CONTINUE WITH PLAN OF CARE.
--- NOTE | 2019-01-17 11:43 | NUR ---
RESTING IN BED, NO DISTRESS NOTED. DENIES ANY DISCOMFORT.
[2019-01-17] MEDS ORDERED: DETROL1 MG PO (17:03)
--- NOTE | 2019-01-17 18:05 | NUR ---
PT DC'D HOME IN NO DISTRESS, AWAKE, ALERT AND ORIENTED. VS STABLE. NO C/O PAIN OR DISCOMFORT AT THIS TIME. DC INSTRUCTIONS REVIEWED WITH PT, RX GIVEN. HL REMOVED AND SITE WITH NO REDNESS OR SWELLING. PERSONAL BELONGINGS TAKEN HOME.
[2019-01-21 10:13] VITALS: Ht 172.7 cm; Wt 85.3 kg
== END 2019-01-17 18:10 | disposition home or self-care (01) | DRG 696 ==
LOC: ED 19:53 → MU 23:37
PROVIDERS: Emergency Medicine; ADMIT Internal Medicine Nephrology
DX: R33.9 Retention of urine, unspecified (principal); R30.9 Painful micturition, unspecified; R32 Unspecified urinary incontinence; J44.9 Chronic obstructive pulmonary disease, unspecified; E11.9 Type 2 diabetes mellitus without complications; I10 Essential (primary) hypertension; F17.210 Nicotine dependence, cigarettes, uncomplicated
CPT/HCPCS: 36600; 83880; 99406; G0378; J1580; J1644; J2270; J2405; J7050; J7613; J7644; Q0092

== ENCOUNTER 2019-02-08 14:03 | Observation (INO) | payer OTHER, MEDICAID ==
[~2019-02-08] VITALS: Ht 172.7 cm; Wt 80.3 kg
[~2019-02-08 14:03] MED LIST changes: +DETROL1 MG PO
--- NOTE | 2019-02-08 15:01 | NUR ---
PER PT HAS HAD MANDY LOWER QUAD PAIN FOR A FEW WEEKS. PT STS THAT SHE WAS HERE A COUPLE DAYS AGO FOR THE SAME COMPLAINT. PT STS THAT SHE IS HAVING DYSURIA NO HEMATURIA. PT STS THAT SHE HAS SOME N/-V. PT HAS TENDERNESS TO MANDY LOWER QUAD. PT DENIES ANY BODY ACHES OR TEMP. +BOWEL SOUNDS TO ALL FOUR QUAD. PT STS THAT SHE IS HAVING SOME TROUBLE EATING BUT IS ABLE TO DRINK WATER. VSS. NO DISTRESS NOTED, DR. JOHNSON AT BEDSIDE. WILL CONTINUE TO MONITOR.
[2019-02-08 15:45] LABS: BASOPHIL % 0.7 % (0-2); PLATELET COUNT 178 x10^3mcL (130-400); RED CELL DISTRIBUTION WIDTH 14.7 % (11.5-14.5)
[2019-02-08 16:14] LABS: CALCIUM 8.4 mg/dL (8.5-10.1); CARBON DIOXIDE 24.9 mmol/L (21-32); CHLORIDE SERUM 108 mmol/L (98-107); CREATININE SERUM 0.9 mg/dL (0.6-1.0); GLUCOSE SERUM 123 mg/dL (74-106); POTASSIUM SERUM 3.9 mmol/L (3.5-5.1); SODIUM SERUM 144 mmol/L (136-145)
[2019-02-08 16:19] LABS: ALBUMIN 3.6 g/dL (3.4-5.0); ALKALINE PHOSPHATASE 64 U/L (46-116); ALT/SGPT 15 U/L (14-59); AST/SGOT 12 U/L (15-37); BILIRUBIN TOTAL 0.3 mg/dL (0.20-1.00); TOTAL PROTEIN, SERUM 6.8 g/dL (6.4-8.2)
--- NOTE | 2019-02-08 19:33 | NUR ---
REPORT GIVEN TO KAYLYNN MACIEL TO ASSUME CARE OF PT.
--- NOTE | 2019-02-08 19:36 | NUR ---
REPORT GIVEN TO STEVE MACIEL TO ASSUME CARE OF PT.
--- NOTE | 2019-02-08 19:47 | NUR ---
RECEIVED PT FROM ED VIA [facility], CAME IN DUE TO ABDOMINAL PAIN RADIATING TO THE BACK AND DYSURIA. AAOX4. DENIES HEADACHE/DIZZINESS. ABLE TO FOLLOW COMMANDS. NO SOB NOTED, STATED THAT SHE HAS PRODUCTIVE COUGH, ABLE TO EXPECTORATE WHITE PHLEGM. DENIES CHEST PAIN/PRESSURE. C/O 7/10 ACHING LOWER ABDOMINAL PAIN RADIATING TO THE LOWER BACK, DYSURIA AND STATED THAT SHE HAS TO PUT PRESSURE SO THAT SHE CAN URINATE. BLADDER IS SOFT. IV SITE ON THE LEFT HAND IS PATENT AND INTACT. SIDE RAILS UPX2. CALL LIGHT ON REACH. ENDORSED TO PRIMARY NURSE STEVE FOR CONTINUITY OF CARE
[2019-02-08 19:54] VITALS: BP 116/83
[2019-02-08 20:00] VITALS: Ht 172.7 cm; Wt 80.3 kg
--- NOTE | 2019-02-08 20:01 | NUR ---
RECIEVED PT IN NO ACUTE DISTRESS FROM DARRIN MACIEL. AOX4. MED SURG. BREATHING E/U ON RA. C/O LOWER BACK PAIN, WILL MEDICATE PER EMAR. IV TO , PATENT. CONTACT PRECAUTIONS IN PLACE. ORIENTED TO ROOM. BED IN LOWEST POSITION, 2 SIDE RAILS UP, CALL LIGHT IN REACH. INSTRUCTED TO CALL FOR ASSISTANCE.
[2019-02-08 22:25] LABS: UA SPECIFIC GRAVITY 1.025 (1.005-1.035); microscopic required? YES; urine erythrocyte 2+ (NEGATIVE)
[2019-02-09 00:30] VITALS: BP 107/52
--- NOTE | 2019-02-09 03:12 | NUR ---
RESTING WITH EYES CLOSED. BREATHING E/U. NO ACUTE DISTRESS NOTED. WILL CONTINUE TO MONITOR.
[2019-02-09 05:32] VITALS: BP 115/55
--- NOTE | 2019-02-09 06:42 | NUR ---
NO ACUTE CHANGES. NO ACUTE DISTRESS NOTED. WILL CONTINUE TO MONITOR.
--- NOTE | 2019-02-09 07:40 | NUR ---
RECEIVED PT IN BED A/A/OX4 DENIES NAVARRO. RESP EVEN AND UNLABORED WITH CLEAR BS BILAT, NOTED WITH PRODUCTIVE COUGH WITH SCANT WHITISH PHLEM. DENIES ANY SOB/CP/PRESSURE AT THIS TIME. NO EDEMA NOTED WITH IV SLTO LH. ABD SOFT, NONTENDER WITH ACTIVE BS X4. DENIES ANY N/V AT THIS TIME. PT REPORTS EPOSODES OF DYSURIA WITH HX OF FREQUENT UTI, AND MDRO OF THE URINE. CONTACT ISO MAINTAINED. PT IS AMBULATORY. CALL LIGHT IN REACH NEEDS ATTENDED TO.
[2019-02-09 07:50] VITALS: BP 113/60
--- NOTE | 2019-02-09 09:20 | NUR ---
PT C/O PAIN TO PUBIC AND BACK AREA, AT 12/16, MEDICATED WITH NORCO PER EMAR. CALL LIGHT IN REACH NEEDS ATTENDED TO.
--- NOTE | 2019-02-09 12:05 | NUR ---
DR. EVANS IN TO EVAL PT, MADE AWARE PT WILL BE D/C HOME TODAY. PT AWARE STATED SHE WILL MAKE TRANSPORTATION ARRANGEMENTS.
[2019-02-09 12:15] VITALS: BP 99/59
[2019-02-09 12:26] VITALS: BP 99/59
[2019-02-09 12:31] VITALS: BP 99/59
--- NOTE | 2019-02-09 13:28 | NUR ---
PT PROVIDED WITH D/C HOME INSTRUCTIONS, GIVEN MEDICATION/PRESCRIPTION EDUCATION. INSTRUCTED TO F/U WITH PCP WITH IN 3-5DAYS. INSTRUCTED TO DRINK PLENTY OF WATER AND PROVIDE FREQUENT PERICARE TO PREVENT UTI. PT VERBALIZED UNDERSTANDING OF INSTRUCTIONS. IV D/C'D CATHETER INTACT. PT ACCOMPANIED TO LOBBY WITH ALL PERSONAL BELINGINGS IN HAND FREE OF ANY APPARENT DISTRESS.
== END 2019-02-09 13:30 | disposition home or self-care (01) | DRG 690 ==
LOC: ED 14:03 → MU 19:13
PROVIDERS: Emergency Medicine; ADMIT Internal Medicine Pulmonary Disease
DX: N39.0 Urinary tract infection, site not specified (principal); B96.20 Unspecified Escherichia coli [E. coli] as the cause of diseases classified elsewhere; N32.81 Overactive bladder; E11.9 Type 2 diabetes mellitus without complications; I10 Essential (primary) hypertension; E78.5 Hyperlipidemia, unspecified; J45.909 Unspecified asthma, uncomplicated; Z16.24 Resistance to multiple antibiotics
CPT/HCPCS: 82962; G0378; J1650; J2185; J7030; J7613; J7633

== ENCOUNTER 2019-04-29 22:18 | Emergency (ER) | payer OTHER, MEDICAID ==
[~2019-04-29] VITALS: Ht 175.3 cm; Wt 82.6 kg
[2019-04-29 22:42] VITALS: Ht 175.3 cm; Wt 82.6 kg
[2019-04-30 01:26] VITALS: BP 126/65
== END 2019-04-30 01:26 | disposition home or self-care (01) ==
LOC: ED 22:18
DX: M54.81 Occipital neuralgia (principal); M62.830 Muscle spasm of back; M50.20 Other cervical disc displacement, unspecified cervical region; F17.210 Nicotine dependence, cigarettes, uncomplicated; J44.9 Chronic obstructive pulmonary disease, unspecified; I10 Essential (primary) hypertension; E11.9 Type 2 diabetes mellitus without complications; Z71.6 Tobacco abuse counseling; Z88.1 Allergy status to other antibiotic agents; Z88.6 Allergy status to analgesic agent; Z88.8 Allergy status to other drugs, medicaments and biological substances; Z88.0 Allergy status to penicillin
CPT/HCPCS: 99406; J2001; J2270; Q0162

== ENCOUNTER 2019-07-09 18:14 | Emergency (ER) | payer OTHER, MEDICAID ==
[~2019-07-09] VITALS: Ht 177.8 cm; Wt 82.6 kg
[2019-07-09 18:17] VITALS: Ht 177.8 cm; Wt 82.6 kg
[2019-07-09 20:13] VITALS: BP 119/42
== END 2019-07-09 20:13 | disposition home or self-care (01) ==
LOC: ED 18:14
DX: N39.0 Urinary tract infection, site not specified (principal); I10 Essential (primary) hypertension; E11.9 Type 2 diabetes mellitus without complications; Z98.890 Other specified postprocedural states; Z88.0 Allergy status to penicillin; Z88.1 Allergy status to other antibiotic agents; Z88.6 Allergy status to analgesic agent; Z88.8 Allergy status to other drugs, medicaments and biological substances; Z91.041 Radiographic dye allergy status
CPT/HCPCS: 99406

== ENCOUNTER 2019-11-12 16:47 | Emergency (ER) | payer OTHER, MEDICAID ==
[~2019-11-12] VITALS: Ht 177.8 cm; Wt 81.6 kg
[2019-11-12 17:04] VITALS: Ht 177.8 cm; Wt 81.6 kg
[2019-11-12 17:45] LABS: BASOPHIL % 0.3 % (0-2); PLATELET COUNT 193 x10^3mcL (130-400); RED CELL DISTRIBUTION WIDTH 13.7 % (11.5-14.5)
[2019-11-12 17:50] LABS: CALCIUM 8.3 mg/dL (8.5-10.1); CHLORIDE SERUM 104 mmol/L (98-107); CREATININE SERUM 0.9 mg/dL (0.6-1.0); GLUCOSE SERUM 120 mg/dL (74-106); POTASSIUM SERUM 3.7 mmol/L (3.5-5.1); SODIUM SERUM 139 mmol/L (136-145)
[2019-11-12 17:54] LABS: ALBUMIN 3.7 g/dL (3.4-5.0); ALKALINE PHOSPHATASE 72 U/L (46-116); ALT/SGPT 20 U/L (14-59); AST/SGOT 11 U/L (15-37); BILIRUBIN TOTAL 0.3 mg/dL (0.20-1.00); LIPASE 58 IU/L (73-393); TOTAL PROTEIN, SERUM 6.9 g/dL (6.4-8.2)
[2019-11-12 17:56] LABS: UA SPECIFIC GRAVITY 1.015 (1.005-1.035); microscopic required? YES; urine erythrocyte 1+ (NEGATIVE)
[2019-11-12 19:03] VITALS: BP 109/59
== END 2019-11-12 19:03 | disposition home or self-care (01) ==
LOC: ED 16:47
PROVIDERS: Emergency Medicine
DX: R10.31 Right lower quadrant pain (principal); R10.32 Left lower quadrant pain; F17.210 Nicotine dependence, cigarettes, uncomplicated; M54.9 Dorsalgia, unspecified; J45.909 Unspecified asthma, uncomplicated; I10 Essential (primary) hypertension; E11.9 Type 2 diabetes mellitus without complications; J44.9 Chronic obstructive pulmonary disease, unspecified; Z88.6 Allergy status to analgesic agent; Z88.8 Allergy status to other drugs, medicaments and biological substances; Z88.1 Allergy status to other antibiotic agents; Z88.0 Allergy status to penicillin
CPT/HCPCS: 99406; J2270; J2405

== ENCOUNTER 2020-01-12 19:00 | Emergency (ER) | payer OTHER, MEDICAID ==
[~2020-01-12] VITALS: Ht 177.8 cm; Wt 82.1 kg
[~2020-01-12 19:00] MED LIST changes: +CLARITIN REDITAB5 MG PO; +RAYOS2 MG PO
[2020-01-12 19:02] VITALS: Ht 177.8 cm; Wt 82.1 kg
[2020-01-12 20:31] LABS: BASOPHIL % 0.4 % (0-2); PLATELET COUNT 146 x10^3mcL (130-400); RED CELL DISTRIBUTION WIDTH 13.6 % (11.5-14.5)
[2020-01-12 20:41] LABS: CALCIUM 8.6 mg/dL (8.5-10.1); CARBON DIOXIDE 31.1 mmol/L (21-32); CHLORIDE SERUM 102 mmol/L (98-107); CREATININE SERUM 1.1 mg/dL (0.6-1.0); GLUCOSE SERUM 133 mg/dL (74-106); POTASSIUM SERUM 3.6 mmol/L (3.5-5.1); SODIUM SERUM 138 mmol/L (136-145)
[2020-01-12 20:45] LABS: ALBUMIN 3.4 g/dL (3.4-5.0); ALKALINE PHOSPHATASE 71 U/L (46-116); ALT/SGPT 22 U/L (14-59); AST/SGOT 10 U/L (15-37); BILIRUBIN TOTAL 0.34 mg/dL (0.20-1.00); CHOLESTEROL 115 mg/dL (<200); CHOLESTEROL/HDL RATIO 2.7; HDL CHOLESTEROL 42 mg/dL (40-60); LIPASE 62 IU/L (73-393); TOTAL PROTEIN, SERUM 6.4 g/dL (6.4-8.2); TRIGLYCERIDES 183 mg/dL (<150)
[2020-01-12 21:20] LABS: FREE T4 1.14 ng/dL (0.76-1.46); FREE THYROXINE INDEX 2.7 ug/dL (1.4-4.5); T4(THYROXINE) 7.4 ug/dL (4.7-13.3)
[2020-01-13 00:20] VITALS: BP 108/54
== END 2020-01-13 00:20 | disposition left against medical advice (07) ==
LOC: ED 19:00
PROVIDERS: Specialist
DX: J44.1 Chronic obstructive pulmonary disease with (acute) exacerbation (principal); I25.10 Atherosclerotic heart disease of native coronary artery without angina pectoris; E11.9 Type 2 diabetes mellitus without complications; Z90.89 Acquired absence of other organs; Z90.49 Acquired absence of other specified parts of digestive tract; Z90.710 Acquired absence of both cervix and uterus; Z88.6 Allergy status to analgesic agent; Z88.1 Allergy status to other antibiotic agents; Z88.0 Allergy status to penicillin
CPT/HCPCS: 36600; 83880; 84439; J7030; J7613; J7644; Q0092